=== PATIENT | male | born 1935 | race Caucasian/White ===

== ENCOUNTER 2018-05-18 11:25 | Emergency (ER) | payer MEDICARE, OTHER ==
[~2018-05-18] VITALS: Ht 177.8 cm; Wt 67.6 kg
--- NOTE | 2018-05-18 11:42 | NUR ---
DR HERNANDEZ AT BEDSIDE FOR EVAL.
[2018-05-18 11:57] LABS: BASOPHILS # (AUTO) 0.1 /CMM (0.0-0.2); BASOPHILS % (AUTO) 2.5 % (0.0-2.0); EOSINOPHILS % (AUTO) 3.5 % (0.0-6.0); HEMATOCRIT 45 % (39-51); HEMOGLOBIN 15.5 g/dL (13.5-17.5); MEAN CORPUSCULAR HEMOGLOBIN 33 PG (26.0-33.0); MEAN CORPUSCULAR HGB CONC 35 g/dl (31.0-36.0); MEAN CORPUSCULAR VOLUME 94 fL (80-96); MONOCYTES # (AUTO) 0.4 /CMM (0.1-1.30); MONOCYTES % (AUTO) 6.8 % (2.0-12.0); NEUTROPHILS % (AUTO) 69.2 % (43.0-81.0); PLATELET COUNT (AUTO) 171 /CMM (150-450); RDW COEFFICIENT OF VARIATION 12.6 (11.5-15.0); RED BLOOD CELL COUNT(AUTO) 4.75 MIL/uL (4.5-6.0); WHITE BLOOD COUNT (AUTO) 5.7 K/uL (4.3-11.0)
[2018-05-18 12:13] LABS: CALCIUM, SERUM 8.6 mg/dL (8.5-10.1); CARBON DIOXIDE 30 mmol/L (21-32); CHLORIDE 104 mmol/L (98-107); CREATININE 1.1 mg/dL (0.6-1.3); GLUCOSE 91 mg/dL (74-106); POTASSIUM 4.4 mmol/L (3.5-5.1); SODIUM SERUM 136 mmol/L (136-145); UREA NITROGEN, BLOOD 23 mg/dL (7-18)
[2018-05-18 12:16] LABS: INR 0.97 (0.85-1.15)
[2018-05-18 12:23] LABS: TROPONIN I < 0.017 ng/mL (0.00-0.056)
[2018-05-18 12:40] LABS: CHOLESTEROL 157 mg/dL (<200); HDL CHOLESTEROL 48 mg/dL (40-60); LDL 115 mg/dL (0-99); TRIGLYCERIDES 71 mg/dL (30-150)
[2018-05-18] MEDS ORDERED: LATA2.5D7 EACHEYE (12:59)
[2018-05-18] MEDS ORDERED: BRIM5DRO2 EACHEYE (12:59)
[2018-05-18 13:47] LABS: APPEARANCE,URINE Clear (CLEAR); BILIRUBIN,URINE Negative (NEGATIVE); BLOOD, URINE Negative Ery/uL (NEGATIVE); COLOR,URINE Yellow (YELLOW); KETONES,URINE Negative (NEGATIVE); LEUKOCYTE ESTERASE ,URINE Negative (NEGATIVE); NITRITE, URINE Negative (NEGATIVE); PROTEIN,URINE Negative (NEGATIVE); UGLUCOSE Negative (NEGATIVE); UROBILINOGEN,URINE 0.2 EU/dL (0.2)
--- NOTE | 2018-05-18 14:00 | NUR ---
JOHN,, CALLED, STS ,SHE JUST GOT OUT OF THE SHOWER AND WILL BE ON HER WAY,PATIENT INFORMED
--- NOTE | 2018-05-18 15:59 | NUR ---
PT D/C TO IN STABLE CONDITION.
[2018-05-18 16:01] VITALS: BP 112/77
== END 2018-05-18 16:01 | disposition home or self-care (01) ==
LOC: ER 11:26
DX: K59.00 Constipation, unspecified (principal); F03.90 Unspecified dementia, unspecified severity, without behavioral disturbance, psychotic disturbance, mood disturbance, and anxiety
CPT/HCPCS: 36415; 70450-TC; 71045-TC; 80048-TC; 80061-TC; 81000-TC; 82962-TC; 84484-TC; 85025-TC; 85730-TC; A4606; Z7610

== ENCOUNTER 2018-09-21 14:23 | Emergency (ER) | payer MEDICARE, OTHER ==
[~2018-09-21] VITALS: Ht 180.3 cm; Wt 74.8 kg
[~2018-09-21 14:23] MED LIST: BRIM5DRO2 EACHEYE; LATA2.5D7 EACHEYE
--- NOTE | 2018-09-21 14:25 | NUR ---
PT BIB RA 860 FROM HOME, C/O ABDOMINAL PAIN,ON & OFF, PT IS AAOX2, NOT IN RESPIRATORY DISTRESS, V/S STABLE, KEPT RESTED AND COMFORTABLE, HOOKED TO MONITOR.
--- NOTE | 2018-09-21 14:55 | NUR ---
SEEN AND EXAMINED BY DORINA ZURITA
--- NOTE | 2018-09-21 15:10 | NUR ---
LABS DRAWNED AND SENT TO LAB. AWAITING RESULTS.
[2018-09-21 15:13] LABS: BASOPHILS # (AUTO) 0.1 /CMM (0.0-0.2); BASOPHILS % (AUTO) 0.9 % (0.0-2.0); EOSINOPHILS % (AUTO) 5.3 % (0.0-6.0); HEMATOCRIT 44 % (39-51); LYMPHOCYTES # (AUTO) 1.3 /CMM (0.8-4.8); LYMPHOCYTES % (AUTO) 23.3 % (20.0-44.0); MEAN CORPUSCULAR HGB CONC 34 g/dl (31.0-36.0); MEAN CORPUSCULAR VOLUME 98 fL (80-96); MONOCYTES # (AUTO) 0.5 /CMM (0.1-1.30); MONOCYTES % (AUTO) 9.2 % (2.0-12.0); NEUTROPHILS # (AUTO) 3.4 /CMM (1.8-8.9); NEUTROPHILS % (AUTO) 61.3 % (43.0-81.0); PLATELET COUNT (AUTO) 152 /CMM (150-450); RED BLOOD CELL COUNT(AUTO) 4.53 MIL/uL (4.5-6.0); WHITE BLOOD COUNT (AUTO) 5.6 K/uL (4.3-11.0)
--- NOTE | 2018-09-21 15:13 | NUR ---
URINAL GIVEN BUT UNABLE TO GIVE URINE SPECIMEN RIGHT NOW.
[2018-09-21 15:23] LABS: CALCIUM, SERUM 9.2 mg/dL (8.5-10.1); CARBON DIOXIDE 29 mmol/L (21-32); CHLORIDE 106 mmol/L (98-107); CREATININE 1.1 mg/dL (0.6-1.3); GLUCOSE 92 mg/dL (74-106); POTASSIUM 4.8 mmol/L (3.5-5.1); SODIUM SERUM 140 mmol/L (136-145); UREA NITROGEN, BLOOD 23 mg/dL (7-18)
[2018-09-21 15:27] LABS: ALANINE AMINOTRANSFERASE 18 U/L (12-78); ALBUMIN 3.8 g/dL (3.4-5.0); ALKALINE PHOSPHATASE 66 U/L (46-116); ASPARTATE AMINOTRANSFERASE 14 U/L (15-37); BILIRUBIN,DIRECT 0.1 mg/dL (0.0-0.2); BILIRUBIN,TOTAL 0.4 mg/dL (0.2-1.0); LIPASE 312 U/L (73-393)
[2018-09-21] MEDS ORDERED: CT SWABBABLE VALVE TRANS SET 1 EA INFUS.SET MC ONE (15:38)
[2018-09-21] MEDS ORDERED: IV NS 0.9% 250 ML IV ONE (15:38)
[2018-09-21] MEDS ORDERED: IOHEXOL-300 100 ML VIAL IV ONE (15:38)
--- NOTE | 2018-09-21 15:51 | NUR ---
WHEELED TO CT SCAN VIA [facility].
--- NOTE | 2018-09-21 15:51 | NUR ---
URINE SPECIMEN COLLECTED AND SENT TO LAB.
[2018-09-21 15:56] LABS: APPEARANCE,URINE Clear (CLEAR); BILIRUBIN,URINE SMALL (NEGATIVE); BLOOD, URINE Negative Ery/uL (NEGATIVE); COLOR,URINE Yellow (YELLOW); KETONES,URINE Trace (NEGATIVE); LEUKOCYTE ESTERASE ,URINE Negative (NEGATIVE); NITRITE, URINE Negative (NEGATIVE); PROTEIN,URINE Negative (NEGATIVE); UGLUCOSE Negative (NEGATIVE)
[2018-09-21 16:05] LABS: RBC,URINE 0-2 /HPF (0-2); WBC,URINE 0-2 /HPF (0-3)
[2018-09-21 16:06] LABS: BACTERIA,URINE Few /HPF (None Seen); MUCUS,URINE Moderate /LPF (None Seen); SQUAMOUS EPITHELIAL CELL,UR Few /HPF (None Seen)
--- NOTE | 2018-09-21 18:19 | NUR ---
IV removed. Catheter intact and site benign. Pressure and 4x4 applied to site. No bleeding noted. Patient discharged to home in stable condition. Written and verbal after care instructions given. Patient verbalizes understanding of instruction.
[2018-09-21 18:22] VITALS: BP 127/80
== END 2018-09-21 18:22 | disposition home or self-care (01) ==
LOC: ER 14:23
DX: I71.4 Abdominal aortic aneurysm, without rupture (principal); F03.90 Unspecified dementia, unspecified severity, without behavioral disturbance, psychotic disturbance, mood disturbance, and anxiety; R94.31 Abnormal electrocardiogram [ECG] [EKG]
CPT/HCPCS: 36415; 80048-TC; 80076-TC; 81000-TC; 83690-TC; 84484-TC; 85025-TC; 87086-TC; J7050; Q9967

== ENCOUNTER 2018-09-28 08:38 | Emergency (ER) | payer MEDICARE ==
[~2018-09-28] VITALS: Ht 177.8 cm; Wt 64.9 kg
[2018-09-28 08:54] VITALS: BP 120/79
[2018-09-28 09:46] LABS: APPEARANCE,URINE Clear (CLEAR); BILIRUBIN,URINE Negative (NEGATIVE); BLOOD, URINE Negative Ery/uL (NEGATIVE); COLOR,URINE Yellow (YELLOW); KETONES,URINE Negative (NEGATIVE); LEUKOCYTE ESTERASE ,URINE Negative (NEGATIVE); NITRITE, URINE Negative (NEGATIVE); PH,URINE 5.5 (5.0-8.0); PROTEIN,URINE Negative (NEGATIVE); UGLUCOSE Negative (NEGATIVE); UROBILINOGEN,URINE 0.2 EU/dL (0.2)
--- NOTE | 2018-09-28 10:08 | NUR ---
Pt states "I can pee now-peed up a storm." For discharge ACI given to spouse- Verbalized understanding Home ambulatory stable. NO acute changes
== END 2018-09-28 10:11 | disposition home or self-care (01) ==
LOC: ER 08:49
DX: R33.9 Retention of urine, unspecified (principal); F03.90 Unspecified dementia, unspecified severity, without behavioral disturbance, psychotic disturbance, mood disturbance, and anxiety
CPT/HCPCS: 81001; 87086; 99283; A4606; 81000-TC

== ENCOUNTER 2019-01-12 00:03 | Emergency (ER) | payer MEDICARE ==
[~2019-01-12] VITALS: Ht 175.3 cm; Wt 65.8 kg
--- NOTE | 2019-01-12 00:10 | NUR ---
BIB FAMILY C/C BILATERAL LOWER ABDOMINAL PAIN. AA/OX4. AMBULATED INTO CLINIC WITH STABLE GAIT. SKIN PINK, WARM, DRY. MOVES ALL EXTREMITIES WELL. -GAURDING. PT DENIES N/V/D. VSS NAD. WILL CONTINUE TO MONITOR.
[2019-01-12 00:40] LABS: BASOPHILS # (AUTO) 0.1 /CMM (0.0-0.2); BASOPHILS % (AUTO) 0.9 % (0.0-2.0); EOSINOPHILS % (AUTO) 2.7 % (0.0-6.0); HEMATOCRIT 46 % (39-51); HEMOGLOBIN 15.7 g/dL (13.5-17.5); LYMPHOCYTES # (AUTO) 1.5 /CMM (0.8-4.8); LYMPHOCYTES % (AUTO) 26.5 % (20.0-44.0); MEAN CORPUSCULAR HGB CONC 34 g/dl (31.0-36.0); MEAN CORPUSCULAR VOLUME 97 fL (80-96); MONOCYTES # (AUTO) 0.4 /CMM (0.1-1.30); MONOCYTES % (AUTO) 7.3 % (2.0-12.0); NEUTROPHILS # (AUTO) 3.5 /CMM (1.8-8.9); NEUTROPHILS % (AUTO) 62.6 % (43.0-81.0); PLATELET COUNT (AUTO) 172 /CMM (150-450); WHITE BLOOD COUNT (AUTO) 5.7 K/uL (4.3-11.0)
[2019-01-12 00:50] LABS: APPEARANCE,URINE Clear (CLEAR); BILIRUBIN,URINE Negative (NEGATIVE); BLOOD, URINE Negative Ery/uL (NEGATIVE); COLOR,URINE Yellow (YELLOW); KETONES,URINE Negative (NEGATIVE); LEUKOCYTE ESTERASE ,URINE Negative (NEGATIVE); NITRITE, URINE Negative (NEGATIVE); PROTEIN,URINE Negative (NEGATIVE); UGLUCOSE Negative (NEGATIVE); UROBILINOGEN,URINE 0.2 EU/dL (0.2)
[2019-01-12 00:50] LABS: CALCIUM, SERUM 9.8 mg/dL (8.5-10.1); CARBON DIOXIDE 32 mmol/L (21-32); CHLORIDE 103 mmol/L (98-107); CREATININE 1.2 mg/dL (0.6-1.3); GLUCOSE 95 mg/dL (74-106); POTASSIUM 4.2 mmol/L (3.5-5.1); SODIUM SERUM 142 mmol/L (136-145); UREA NITROGEN, BLOOD 23 mg/dL (7-18)
--- NOTE | 2019-01-12 00:52 | NUR ---
PT BROUGHT TO CT SCAN
[2019-01-12 00:53] LABS: ALANINE AMINOTRANSFERASE 19 U/L (12-78); ALBUMIN 4.4 g/dL (3.4-5.0); ALKALINE PHOSPHATASE 69 U/L (46-116); ASPARTATE AMINOTRANSFERASE 16 U/L (15-37); BILIRUBIN,DIRECT 0.1 mg/dL (0.0-0.2); BILIRUBIN,TOTAL 0.6 mg/dL (0.2-1.0); LIPASE 268 U/L (73-393); TOTAL PROTEIN, SERUM 7.7 g/dL (6.4-8.2)
--- NOTE | 2019-01-12 01:36 | NUR ---
PT RESTING COMFORTABLY WITH FAMILY AT BEDSIDE. ANAYELI/RODRI. LEA. VSS. WILL CONTINUE TO MONITOR.
--- NOTE | 2019-01-12 02:03 | NUR ---
PT WITNESSED AMBULATING IN [place] WITH STABLE GAIT.
--- NOTE | 2019-01-12 03:20 | NUR ---
Patient discharged to home in stable condition. Written and verbal after care instructions given. Patient verbalizes understanding of instruction. IV removed. Catheter intact and site benign. Pressure and 4x4 applied to site. No bleeding noted. AMBULATED WITH STABLE GAIT. VSS.
[2019-01-12 03:21] VITALS: BP 132/77
== END 2019-01-12 03:22 | disposition home or self-care (01) ==
LOC: ER 00:05
DX: I71.4 Abdominal aortic aneurysm, without rupture (principal); K59.00 Constipation, unspecified; F03.90 Unspecified dementia, unspecified severity, without behavioral disturbance, psychotic disturbance, mood disturbance, and anxiety; K21.9 Gastro-esophageal reflux disease without esophagitis
CPT/HCPCS: 36415; 80048-TC; 80076-TC; 81000-TC; 83690-TC; 85025-TC

== ENCOUNTER 2019-02-06 07:57 | Emergency (ER) | payer MEDICARE ==
[~2019-02-06] VITALS: Ht 175.3 cm; Wt 65.3 kg
--- NOTE | 2019-02-06 08:00 | NUR ---
BIB W C/O LOWER ABDOMINAL PAIN THIS MORNING, -DIARRHEA,-NAUSEA/VOMITING, DENIES PAIN UPON ARRIVAL TO ED. TO ER BED 12, HOOKED TO MONITOR, CHANGED TO GOWN, PROVIDED W WARM BLANKET, AWAITING MD PAREDES
--- NOTE | 2019-02-06 08:18 | NUR ---
DR MEDINA AT BEDSIDE
--- NOTE | 2019-02-06 08:34 | NUR ---
quality assurance/r&d lab technician at bedside, blood drawn.
[2019-02-06 08:42] LABS: BASOPHILS % (AUTO) 0.9 % (0.0-2.0); EOSINOPHILS % (AUTO) 5.6 % (0.0-6.0); HEMATOCRIT 42 % (39-51); HEMOGLOBIN 14.3 g/dL (13.5-17.5); LYMPHOCYTES # (AUTO) 1.1 /CMM (0.8-4.8); LYMPHOCYTES % (AUTO) 23.7 % (20.0-44.0); MEAN CORPUSCULAR HGB CONC 34 g/dl (31.0-36.0); MEAN CORPUSCULAR VOLUME 97 fL (80-96); MONOCYTES # (AUTO) 0.4 /CMM (0.1-1.30); MONOCYTES % (AUTO) 9.5 % (2.0-12.0); NEUTROPHILS # (AUTO) 2.7 /CMM (1.8-8.9); NEUTROPHILS % (AUTO) 60.3 % (43.0-81.0); PLATELET COUNT (AUTO) 141 /CMM (150-450); WHITE BLOOD COUNT (AUTO) 4.5 K/uL (4.3-11.0)
[2019-02-06 08:49] LABS: CALCIUM, SERUM 9.2 mg/dL (8.5-10.1); CARBON DIOXIDE 31 mmol/L (21-32); CHLORIDE 106 mmol/L (98-107); CREATININE 1.1 mg/dL (0.6-1.3); GLUCOSE 98 mg/dL (74-106); POTASSIUM 4.8 mmol/L (3.5-5.1); SODIUM SERUM 141 mmol/L (136-145); UREA NITROGEN, BLOOD 28 mg/dL (7-18)
[2019-02-06] MEDS ORDERED: NAPROXEN 250 MG TABLET ONE (08:49)
[2019-02-06] MEDS: NAPROXEN 500 MG TABLET PO SCH ×2 (08:54→08:56)
[2019-02-06 08:55] LABS: ALANINE AMINOTRANSFERASE 15 U/L (12-78); ALBUMIN 3.6 g/dL (3.4-5.0); ALKALINE PHOSPHATASE 58 U/L (46-116); ASPARTATE AMINOTRANSFERASE 13 U/L (15-37); BILIRUBIN,DIRECT 0.1 mg/dL (0.0-0.2); BILIRUBIN,TOTAL 0.3 mg/dL (0.2-1.0); LIPASE 356 U/L (73-393); TOTAL PROTEIN, SERUM 6.6 g/dL (6.4-8.2)
--- NOTE | 2019-02-06 09:48 | NUR ---
URINE SAMPLE SOLLECTED AND SENT TO LAB
[2019-02-06 09:56] LABS: APPEARANCE,URINE Clear (CLEAR); BILIRUBIN,URINE Negative (NEGATIVE); BLOOD, URINE Negative Ery/uL (NEGATIVE); COLOR,URINE Yellow (YELLOW); KETONES,URINE Negative (NEGATIVE); LEUKOCYTE ESTERASE ,URINE Negative (NEGATIVE); NITRITE, URINE Negative (NEGATIVE); PROTEIN,URINE Negative (NEGATIVE); UGLUCOSE Negative (NEGATIVE); UROBILINOGEN,URINE 0.2 EU/dL (0.2)
--- NOTE | 2019-02-06 10:37 | NUR ---
Patient discharged to home in stable condition. Written and verbal after care instructions given. Patient verbalizes understanding of instruction.
[2019-02-06 10:39] VITALS: BP 109/76
== END 2019-02-06 10:40 | disposition home or self-care (01) ==
LOC: ER 07:59
DX: R10.30 Lower abdominal pain, unspecified (principal); F03.90 Unspecified dementia, unspecified severity, without behavioral disturbance, psychotic disturbance, mood disturbance, and anxiety; Z79.899 Other long term (current) drug therapy
CPT/HCPCS: 36415; 80048-TC; 80076-TC; 81000-TC; 83690-TC; 85025-TC

== ENCOUNTER 2019-02-14 06:22 | Emergency (ER) | payer MEDICARE ==
[~2019-02-14] VITALS: Ht 175.3 cm; Wt 64.4 kg
--- NOTE | 2019-02-14 06:43 | NUR ---
presented to the ER with c/o inability to urinate and lower abd tenderness, pmh: "inflamation of prostate." Does not remember exactly when was the last time he used the bathroom.
[2019-02-14] MEDS ORDERED: IV NS 0.9% 500 ML BAG IV ONE (07:00)
[2019-02-14 07:09] LABS: BASOPHILS % (AUTO) 0.7 % (0.0-2.0); EOSINOPHILS % (AUTO) 4.1 % (0.0-6.0); HEMATOCRIT 46 % (39-51); HEMOGLOBIN 15.3 g/dL (13.5-17.5); LYMPHOCYTES % (AUTO) 21.3 % (20.0-44.0); MEAN CORPUSCULAR HGB CONC 34 g/dl (31.0-36.0); MEAN CORPUSCULAR VOLUME 97 fL (80-96); MONOCYTES # (AUTO) 0.4 /CMM (0.1-1.30); MONOCYTES % (AUTO) 9.1 % (2.0-12.0); NEUTROPHILS # (AUTO) 3.1 /CMM (1.8-8.9); NEUTROPHILS % (AUTO) 64.8 % (43.0-81.0); PLATELET COUNT (AUTO) 162 /CMM (150-450); RED BLOOD CELL COUNT(AUTO) 4.72 MIL/uL (4.5-6.0); WHITE BLOOD COUNT (AUTO) 4.8 K/uL (4.3-11.0)
[2019-02-14 07:15] LABS: CALCIUM, SERUM 9.3 mg/dL (8.5-10.1); CARBON DIOXIDE 32 mmol/L (21-32); CHLORIDE 102 mmol/L (98-107); CREATININE 1.3 mg/dL (0.6-1.3); GLUCOSE 91 mg/dL (74-106); POTASSIUM 4.5 mmol/L (3.5-5.1); SODIUM SERUM 139 mmol/L (136-145); UREA NITROGEN, BLOOD 25 mg/dL (7-18)
[2019-02-14 08:40] LABS: APPEARANCE,URINE CLEAR (CLEAR); BILIRUBIN,URINE NEGATIVE (NEGATIVE); BLOOD, URINE NEGATIVE Ery/uL (NEGATIVE); COLOR,URINE YELLOW (YELLOW); KETONES,URINE NEGATIVE (NEGATIVE); LEUKOCYTE ESTERASE ,URINE NEGATIVE (NEGATIVE); NITRITE, URINE NEGATIVE (NEGATIVE); PROTEIN,URINE NEGATIVE (NEGATIVE); UGLUCOSE NEGATIVE (NEGATIVE); UROBILINOGEN,URINE 0.2 EU/dL (0.2)
--- NOTE | 2019-02-14 09:00 | NUR ---
Patient discharged to home in stable condition. Written and verbal after care instructions given. Patient verbalizes understanding of instruction.IV removed. Catheter intact and site benign. Pressure and 4x4 applied to site. No bleeding noted.
[2019-02-14 09:01] VITALS: BP 121/66
== END 2019-02-14 09:03 | disposition home or self-care (01) ==
LOC: ER 06:23
DX: R33.9 Retention of urine, unspecified (principal); R10.2 Pelvic and perineal pain; F03.90 Unspecified dementia, unspecified severity, without behavioral disturbance, psychotic disturbance, mood disturbance, and anxiety
CPT/HCPCS: 36415; 74176; 80048; 81001; 85025; 99284; J7040; 81000-TC

== ENCOUNTER 2019-02-20 04:21 | Emergency (ER) | payer MEDICARE ==
[~2019-02-20] VITALS: Ht 167.6 cm; Wt 65.3 kg
--- NOTE | 2019-02-20 04:35 | NUR ---
PRESENTED TO THE ER W/ C/O ABD PAIN AND INABILITY TO URINATE FOR THE PAST FEW HOURS. W/ PMH OF DEMENTIA AND DOES NOT EXACTLY REMEMBER WHEN WAS THE LAST TIME HE URINATED. VSS. WILL CONT TO MONITOR ,
[2019-02-20] MEDS ORDERED: ACETAMINOPHEN ES 500 MG TABLET ONE (04:40)
[2019-02-20 04:56] LABS: BASOPHILS % (AUTO) 0.9 % (0.0-2.0); EOSINOPHILS % (AUTO) 4.4 % (0.0-6.0); HEMATOCRIT 44 % (39-51); HEMOGLOBIN 14.8 g/dL (13.5-17.5); LYMPHOCYTES # (AUTO) 1.2 /CMM (0.8-4.8); LYMPHOCYTES % (AUTO) 24.8 % (20.0-44.0); MEAN CORPUSCULAR HGB CONC 34 g/dl (31.0-36.0); MEAN CORPUSCULAR VOLUME 97 fL (80-96); MONOCYTES # (AUTO) 0.5 /CMM (0.1-1.30); MONOCYTES % (AUTO) 9.9 % (2.0-12.0); NEUTROPHILS # (AUTO) 2.8 /CMM (1.8-8.9); PLATELET COUNT (AUTO) 155 /CMM (150-450); RED BLOOD CELL COUNT(AUTO) 4.47 MIL/uL (4.5-6.0); WHITE BLOOD COUNT (AUTO) 4.7 K/uL (4.3-11.0)
--- NOTE | 2019-02-20 04:57 | NUR ---
RAC 20G PIV INSERTED. BLOOD DRAWN AND SENT TO THE LAB. MEDICARTED ORDERED; WILL CONT TO MONITOR ,
[2019-02-20] MEDS ORDERED: ACETAMINOPHEN ES 500 MG TABLET PO ONE (05:00)
[2019-02-20] MEDS ORDERED: IV NS 0.9% 1,000 ML BAG IV ONE (05:00)
[2019-02-20 05:04] LABS: CALCIUM, SERUM 8.9 mg/dL (8.5-10.1); CARBON DIOXIDE 31 mmol/L (21-32); CHLORIDE 103 mmol/L (98-107); CREATININE 1.1 mg/dL (0.6-1.3); GLUCOSE 87 mg/dL (74-106); POTASSIUM 4.6 mmol/L (3.5-5.1); SODIUM SERUM 140 mmol/L (136-145); UREA NITROGEN, BLOOD 22 mg/dL (7-18)
--- NOTE | 2019-02-20 05:46 | NUR ---
pt was able to urinate a good amount. unable to measure as he urinated on the floor mostly instead of the urinal. urine: clear and yellow. sample collected and sent to the lab
[2019-02-20 05:50] LABS: APPEARANCE,URINE Clear (CLEAR); BILIRUBIN,URINE Negative (NEGATIVE); BLOOD, URINE Negative Ery/uL (NEGATIVE); COLOR,URINE Yellow (YELLOW); KETONES,URINE Negative (NEGATIVE); LEUKOCYTE ESTERASE ,URINE Negative (NEGATIVE); NITRITE, URINE Negative (NEGATIVE); PROTEIN,URINE Negative (NEGATIVE); UGLUCOSE Negative (NEGATIVE); UROBILINOGEN,URINE 0.2 EU/dL (0.2)
--- NOTE | 2019-02-20 06:06 | NUR ---
Patient discharged to home in stable condition. Written and verbal after care instructions given. Patient verbalizes understanding of instruction.
[2019-02-20 06:07] VITALS: BP 128/74
== END 2019-02-20 06:07 | disposition home or self-care (01) ==
LOC: ER 04:22
DX: E86.0 Dehydration (principal); F03.90 Unspecified dementia, unspecified severity, without behavioral disturbance, psychotic disturbance, mood disturbance, and anxiety
CPT/HCPCS: 36415; 80048; 81001; 85025; 96360; 99283; J7030; 81000-TC

== ENCOUNTER 2019-03-12 06:25 | Inpatient (IN) | payer MEDICARE, OTHER ==
[~2019-03-12] VITALS: Ht 170.2 cm; Wt 60.0 kg
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
[2019-03-12] MEDS ORDERED: OLANZAPINE 5 MG TABLET PO ONE (07:00)
[2019-03-12] MEDS ORDERED: OLANZAPINE 5 MG TABLET ONE (07:06)
[2019-03-12 07:08] LABS: EOSINOPHILS % (AUTO) 3.1 % (0.0-6.0); HEMATOCRIT 42 % (39-51); HEMOGLOBIN 14.1 g/dL (13.5-17.5); LYMPHOCYTES # (AUTO) 1.2 /CMM (0.8-4.8); LYMPHOCYTES % (AUTO) 26.3 % (20.0-44.0); MEAN CORPUSCULAR HGB CONC 34 g/dl (31.0-36.0); MEAN CORPUSCULAR VOLUME 98 fL (80-96); MONOCYTES # (AUTO) 0.4 /CMM (0.1-1.30); MONOCYTES % (AUTO) 9.2 % (2.0-12.0); NEUTROPHILS # (AUTO) 2.7 /CMM (1.8-8.9); NEUTROPHILS % (AUTO) 60.4 % (43.0-81.0); PLATELET COUNT (AUTO) 141 /CMM (150-450); RED BLOOD CELL COUNT(AUTO) 4.32 MIL/uL (4.5-6.0); WHITE BLOOD COUNT (AUTO) 4.5 K/uL (4.3-11.0)
[2019-03-12 07:17] LABS: CALCIUM, SERUM 9.1 mg/dL (8.5-10.1); CARBON DIOXIDE 27 mmol/L (21-32); CHLORIDE 104 mmol/L (98-107); CREATININE 1.1 mg/dL (0.6-1.3); GLUCOSE 97 mg/dL (74-106); POTASSIUM 4.1 mmol/L (3.5-5.1); SODIUM SERUM 139 mmol/L (136-145); UREA NITROGEN, BLOOD 23 mg/dL (7-18)
--- NOTE | 2019-03-12 07:25 | NUR ---
RECVD REPORT FROM IGOR. PATIENT IS STABLE WITH NO DISTRESS NOTED. VS ARE STABLE WILL CONTINUE TO MONITOR.
[2019-03-12 07:32] LABS: ALANINE AMINOTRANSFERASE 15 U/L (12-78); ALBUMIN 3.8 g/dL (3.4-5.0); ALKALINE PHOSPHATASE 52 U/L (46-116); ASPARTATE AMINOTRANSFERASE 13 U/L (15-37); BILIRUBIN,DIRECT 0.2 mg/dL (0.0-0.2); BILIRUBIN,TOTAL 0.8 mg/dL (0.2-1.0); SALICYLATE 0.9 mg/dL (2.8-20.0); TOTAL PROTEIN, SERUM 6.6 g/dL (6.4-8.2)
[2019-03-12 07:33] LABS: ACETAMINOPHEN 0 ug/ml (10-30); ALCOHOL, BLOOD < 3 mg/dL (0-0)
--- NOTE | 2019-03-12 07:45 | NUR ---
URINE SAMPLE COLLECTED SENT TO LAB
--- NOTE | 2019-03-12 08:12 | NUR ---
CALLED ART [phone]
[2019-03-12 08:14] LABS: APPEARANCE,URINE Clear (CLEAR); BILIRUBIN,URINE Negative (NEGATIVE); BLOOD, URINE Negative Ery/uL (NEGATIVE); COLOR,URINE Yellow (YELLOW); KETONES,URINE Negative (NEGATIVE); LEUKOCYTE ESTERASE ,URINE Negative (NEGATIVE); NITRITE, URINE Negative (NEGATIVE); PH,URINE 6.5 (5.0-8.0); PROTEIN,URINE Negative (NEGATIVE); UGLUCOSE Negative (NEGATIVE)
[2019-03-12 08:22] LABS: BACTERIA,URINE None seen /HPF (None Seen); RBC,URINE 0-2 /HPF (0-2); SQUAMOUS EPITHELIAL CELL,UR Rare /HPF (None Seen)
[2019-03-12 08:23] LABS: MUCUS,URINE Few /LPF (None Seen); WBC,URINE 0-2 /HPF (0-3)
--- NOTE | 2019-03-12 08:24 | NUR ---
BREAKFAST PROVIDED AT BEDSIDE
--- NOTE | 2019-03-12 11:51 | NUR ---
ADMIT TO [address] GPS
--- NOTE | 2019-03-12 12:15 | NUR ---
REPORT GIVEN TO RADHA
[2019-03-12] MEDS ORDERED: MAGNESIUM HYDROXIDE 30 ML UDC PO PRN (13:30)
[2019-03-12] MEDS ORDERED: MAG HYDROX/AL HYDROX/SIMETH 30 ML UDC PO PRN (13:30)
[2019-03-12] MEDS ORDERED: ACETAMINOPHEN 325 MG TABLET PO PRN (13:30)
--- NOTE | 2019-03-12 13:34 | NUR ---
GPS RN ADMITTING NOTE: PT 84 Y/O MALE ADMITTED FROM HOME TO [facility] ED.PLACED ON 5150 HOLD FOR GD PER HOLD PT IS ALERT AND KNOWS HIS NAME , HE ACKNOWLEDGES PUSHING HIS AND IS VERY APOLOGETIC.PT THINKS HE JUST [place] FEW DA[place] AGO. PT IS NON COMPLIANT WITH CARE. UPON FACE TO FACE ASSESSMENT PT A&O X1-2 CONFUSED, FORGETFUL, DISORGANIZED, AMBULATORY STEADY GAIT.DR PAULINO NOTIFIED WITH STANDING ORDER. PT UNABLE TO SIGN ADMITTING PAPERS DUE TO MENTAL STATE.
[2019-03-12 16:00] VITALS: BP 135/77
[2019-03-12] MEDS: DIVALPROEX SODIUM 125 MG TABLET.DR PO SCH (16:51)
--- NOTE | 2019-03-12 19:30 | NUR ---
GPS RN NOTE, RECEIVED PATIENT AWAKE AND IN BED, NO S/S OR COMPLAINTS OF PAIN AT THIS TIME. PATIENT IS DISPLAYING NO S/S OF APPARENT DISTRESS AT THIS TIME. PATIENT BREATHING IS UNLABORED WITH EQUAL RISE AND FALL OF THE CHEST. PATIENT IS ALERT AND ORIENTED X 1 ON ROOM AIR WITH A SPO2 OF 94 %. PATIENT IS MED COMPLAINT, DISORGANIZED, ANXIOUS, UNCOOPERATIVE, CONFUSED, AND NEEDS REORIENTATION. PATIENT DENIES SUICIDE AND HOMICIDAL IDEATIONS AT THIS TIME. PATIENT ASSISTED WITH TURNING AND REPOSITIONING Q2HR AND PRN FOR COMFORT AND CIRCULATION. PATIENT HAS NO NEEDS AT THIS TIME. PATIENT EDUCATED ON THE USE OF THE CALL PRYOR. PATIENT BED SIDE RAILS ARE UP X 2 FOR SAFETY, BED IS LOCKED, AND LOW WILL CONTINUE TO MONITOR AND MAINTAIN SAFETY.
[2019-03-12 20:09] VITALS: BP 117/79
[2019-03-12] MEDS ORDERED: QUETIAPINE FUMARATE 25 MG TABLET PO SCH (22:00)
[2019-03-12] MEDS: TEMAZEPAM 7.5 MG CAPSULE PO PRN (22:36)
--- NOTE | 2019-03-12 22:36 | NUR ---
GPS RN NOTE, PATIENT HAS A COMPLAINT OF NOT BEING ABLE TO SLEEP AND IS REQUESTING RESTORIL AT THIS TIME. PATIENT VITAL SIGNS ARE STABLE. GAVE RESTORIL 7.5 MG PO HS PRN ORDERED. WILL REASSESS FOR INSOMNIA AND I WILL CONTINUE TO MONITOR THIS PATIENT.
[2019-03-13] MEDS: LORAZEPAM 0.5 MG TABLET PO PRN ×2 (01:04→13:55)
--- NOTE | 2019-03-13 01:04 | NUR ---
GPS RN NOTE, PATIENT HAS A COMPLAINT OF FEELING ANXIOUS AND IS REQUESTING ATIVAN AT THIS TIME. PATIENT VITAL SIGNS ARE STABLE. GAVE ATIVAN 0.5MG PO Q6HR PRN ORDERED. WILL REASSESS FOR ANXIETY AND I WILL CONTINUE TO MONITOR THIS PATIENT.
[2019-03-13 07:17] LABS: ALANINE AMINOTRANSFERASE 14 U/L (12-78); ALBUMIN 3.7 g/dL (3.4-5.0); ALKALINE PHOSPHATASE 53 U/L (46-116); ASPARTATE AMINOTRANSFERASE 15 U/L (15-37); BILIRUBIN,TOTAL 0.6 mg/dL (0.2-1.0); CARBON DIOXIDE 25 mmol/L (21-32); CHLORIDE 105 mmol/L (98-107); GLUCOSE 89 mg/dL (74-106); POTASSIUM 3.8 mmol/L (3.5-5.1); SODIUM SERUM 139 mmol/L (136-145); TOTAL PROTEIN, SERUM 6.6 g/dL (6.4-8.2); UREA NITROGEN, BLOOD 25 mg/dL (7-18)
[2019-03-13 07:43] LABS: CHOLESTEROL 167 mg/dL (<200); HDL CHOLESTEROL 52 mg/dL (40-60); LDL 104 mg/dL (0-99); TRIGLYCERIDES 73 mg/dL (30-150)
[2019-03-13 08:00] VITALS: BP 98/60
[2019-03-13] MEDS: TIMOLOL 0.5% SOLN OPHTH 5 ML BOTTLE EACHEYE SCH ×2 (08:44→17:04)
[2019-03-13] MEDS: BRIMONIDINE TARTRATE OPHT SOLN 5 ML BOTTLE EACHEYE SCH ×2 (08:44→17:04)
[2019-03-13] MEDS: DIVALPROEX SODIUM 125 MG TABLET.DR PO SCH ×3 (08:44→17:04)
--- NOTE | 2019-03-13 09:00 | NUR ---
NURSE NOTE RECEIVED PT IN HIS BED, APPEARED SLEEPING IN STABLE CONDITION, PT TOOK HIS MEDICATION, EAT HIS BREAKFAST, STATED I WANT TO SLEEP LIVE ME ALONE.
--- NOTE | 2019-03-13 09:19 | NUR ---
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 JANAK stated that she has not interviewed pt yet and has not contacted family and will return his call with additional information. Dillon agreed.
--- NOTE | 2019-03-13 13:50 | NUR ---
NURSE NOTE PT GETTING CONFUSED NOT FOLLOWING DIRECTION, ATIVAN GIVEN,
--- NOTE | 2019-03-13 15:30 | NUR ---
NURSE NOTE PT IS GETTING ANXIOUS, FOCUSED ON LOOKING FOR HIS , NOT RESPONDING PROPERLY TO QUESTIONS. PT IS NOT STABLE WHEN WALKING TO FALL, CHARGE NURSE NOTIFIED ABOUT PT UNSTABLE AND GETTING MORE CONFUSED, SHE SAID INSTRUCTED TO PUT PT ON A LIN CHAIR,
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
[2019-03-13 16:00] VITALS: BP 133/79
[2019-03-13] MEDS: QUETIAPINE FUMARATE 25 MG TABLET PO SCH ×2 (17:04→22:22)
--- NOTE | 2019-03-13 17:45 | NUR ---
NURSE NOTE PT TOOK DOWN FOR CT BUT THEY COULD' NT DO IT BECAUSE PT REFUSED THEY BROUGHT PT BACK THE UNIT, PT IN DINNER ROOM IN STABLE CONDITION
--- NOTE | 2019-03-13 18:20 | NUR ---
NURSE NOTE PT IN DINNER ROOM WITH THE ON THE SIDE, PT IS TOTALLY CONFUSED NOT FOLLOWING DIRECTION
--- NOTE | 2019-03-13 19:30 | NUR ---
GPS RN NOTE, RECEIVED PATIENT AWAKE AND IN BED, NO S/S OR COMPLAINTS OF PAIN AT THIS TIME. PATIENT IS DISPLAYING NO S/S OF APPARENT DISTRESS AT THIS TIME. PATIENT BREATHING IS UNLABORED WITH EQUAL RISE AND FALL OF THE CHEST. PATIENT IS ALERT AND ORIENTED X 3 ON ROOM AIR WITH A SPO2 OF 93 %. PATIENT IS MED COMPLAINT, ANXIOUS, ANGRY UNCOOPERATIVE, AND NEEDS REORIENTATION. PATIENT DENIES SUICIDE AND HOMICIDAL IDEATIONS AT THIS TIME. PATIENT ASSISTED WITH TURNING AND REPOSITIONING Q2HR AND PRN FOR COMFORT AND CIRCULATION. PATIENT HAS NO NEEDS AT THIS TIME. PATIENT EDUCATED ON THE USE OF THE CALL PRYOR. PATIENT BED SIDE RAILS ARE UP X 2 FOR SAFETY, BED IS LOCKED, AND LOW WILL CONTINUE TO MONITOR AND MAINTAIN SAFETY.
[2019-03-13 20:19] VITALS: BP 134/62
[2019-03-13] MEDS: LATANOPROST EYE DROP 0.005% 2.5 ML BOTTLE EACHEYE SCH (22:21)
[2019-03-13] MEDS: TEMAZEPAM 7.5 MG CAPSULE PO PRN (22:22)
[2019-03-14 08:00] VITALS: BP 105/69
[2019-03-14] MEDS: BRIMONIDINE TARTRATE OPHT SOLN 5 ML BOTTLE EACHEYE SCH ×2 (08:52→16:38)
[2019-03-14] MEDS: TIMOLOL 0.5% SOLN OPHTH 5 ML BOTTLE EACHEYE SCH ×2 (08:52→16:38)
[2019-03-14] MEDS: DIVALPROEX SODIUM 125 MG TABLET.DR PO SCH ×3 (08:52→16:38)
[2019-03-14] MEDS: QUETIAPINE FUMARATE 25 MG TABLET PO SCH ×3 (08:52→22:21)
--- NOTE | 2019-03-14 09:10 | NUR ---
UR NOTE: JANAK contacted Caterina [phone] ex:[phone] case manager specialist at [facility] and left clinical review via voicemail.
--- NOTE | 2019-03-14 10:33 | NUR ---
INITIAL DISCHARGE NOTE: Per Jodie [phone] pt may need board and care placement before being able to return home. stated she will see how pt progresses in hospital and on medication and will determine if he will return home to [address] [facility] [address]. SW will help form a safe and proper discharge plan in collaboration with .
--- NOTE | 2019-03-14 10:49 | NUR ---
NURSE NOTE PT IN HIS BED SLEEPING AWAKE HIM FOR CT, PT REFUSED STATED THAT I WANT TO SLEEP
[2019-03-14 11:25] LABS: BASOPHILS % (AUTO) 0.5 % (0.0-2.0); EOSINOPHILS % (AUTO) 3.2 % (0.0-6.0); HEMATOCRIT 45 % (39-51); HEMOGLOBIN 15.3 g/dL (13.5-17.5); LYMPHOCYTES # (AUTO) 1.2 /CMM (0.8-4.8); LYMPHOCYTES % (AUTO) 24.7 % (20.0-44.0); MEAN CORPUSCULAR HGB CONC 34 g/dl (31.0-36.0); MEAN CORPUSCULAR VOLUME 97 fL (80-96); MONOCYTES # (AUTO) 0.4 /CMM (0.1-1.30); MONOCYTES % (AUTO) 8.9 % (2.0-12.0); NEUTROPHILS # (AUTO) 3.1 /CMM (1.8-8.9); NEUTROPHILS % (AUTO) 62.7 % (43.0-81.0); PLATELET COUNT (AUTO) 146 /CMM (150-450); RED BLOOD CELL COUNT(AUTO) 4.65 MIL/uL (4.5-6.0)
[2019-03-14 11:34] LABS: ALANINE AMINOTRANSFERASE 16 U/L (12-78); ALBUMIN 3.8 g/dL (3.4-5.0); ALKALINE PHOSPHATASE 60 U/L (46-116); ASPARTATE AMINOTRANSFERASE 21 U/L (15-37); BILIRUBIN,TOTAL 0.9 mg/dL (0.2-1.0); CALCIUM, SERUM 9.2 mg/dL (8.5-10.1); CARBON DIOXIDE 28 mmol/L (21-32); CHLORIDE 105 mmol/L (98-107); CREATININE 1.1 mg/dL (0.6-1.3); GLUCOSE 81 mg/dL (74-106); MAGNESIUM 2.2 mg/dL (1.8-2.4); PHOSPHORUS 3.4 mg/dL (2.5-4.9); POTASSIUM 3.8 mmol/L (3.5-5.1); SODIUM SERUM 141 mmol/L (136-145); UREA NITROGEN, BLOOD 22 mg/dL (7-18)
[2019-03-14 11:43] LABS: THYROID STIMULATING HORMONE 1.432 uIU/mL (0.358-3.74)
--- NOTE | 2019-03-14 13:54 | NUR ---
UR NOTE: SW received a voicemail from Caterina [phone] ex:[phone] case managers at [facility] stating pt has been authorized 2 days 03/15/19 and 03/16/19 with review due on 03/16/19.
--- NOTE | 2019-03-14 14:30 | NUR ---
NURSE NOTE PT SPEND OF THE DAY IN DINNER ROOM, KEEP PACING FRONT AND BACK NOT LISTEN TO INSTRUCTIONS, KEEP CALLING HIS IDRIS. PT REALLY CONFUSED.
[2019-03-14 16:00] VITALS: BP 131/68
--- NOTE | 2019-03-14 18:20 | NUR ---
NURSE NOTE PT TOOK HIS MEDICATIONS, SO CONFUSED, CAN NOT KEEP CALM OR STAY ONE PLACE, PT KEEP PACING MOVING FROM PT TO ANOTHER, STILL CALLING HIS
[2019-03-14 19:58] VITALS: BP 101/54
[2019-03-14] MEDS: TEMAZEPAM 7.5 MG CAPSULE PO PRN (22:21)
[2019-03-14] MEDS: LATANOPROST EYE DROP 0.005% 2.5 ML BOTTLE EACHEYE SCH (22:24)
[2019-03-15 08:00] VITALS: BP 116/51
[2019-03-15] MEDS: DIVALPROEX SODIUM 125 MG TABLET.DR PO SCH ×2 (08:59→21:51)
[2019-03-15] MEDS: BRIMONIDINE TARTRATE OPHT SOLN 5 ML BOTTLE EACHEYE SCH ×2 (09:00→17:12)
[2019-03-15] MEDS: QUETIAPINE FUMARATE 25 MG TABLET PO SCH ×3 (09:00→21:51)
[2019-03-15] MEDS: TIMOLOL 0.5% SOLN OPHTH 5 ML BOTTLE EACHEYE SCH ×2 (09:00→17:11)
--- NOTE | 2019-03-15 12:31 | NUR ---
JANAK received a call from Kasey Huddleston ([phone]), from Adult Protective Services, and was asked not to discharge the pt back to his home with his due to the 's inability to care for the both of them. JANAK stated that she would pass the message along to the appropriate director social welfare.
[2019-03-15 16:00] VITALS: BP 114/75
[2019-03-15 20:00] VITALS: BP 119/85
[2019-03-15] MEDS: TEMAZEPAM 7.5 MG CAPSULE PO PRN (21:51)
[2019-03-15] MEDS: LATANOPROST EYE DROP 0.005% 2.5 ML BOTTLE EACHEYE SCH (21:51)
[2019-03-16 08:00] VITALS: BP 126/78
--- NOTE | 2019-03-16 08:36 | NUR ---
UR NOTE: JANAK contacted Caterina [phone] ex:[phone] case work aide at [facility] and left clinical review via voicemail.
[2019-03-16] MEDS: QUETIAPINE FUMARATE 25 MG TABLET PO SCH ×3 (08:51→21:27)
[2019-03-16] MEDS: LORAZEPAM 0.5 MG TABLET PO PRN (08:52)
[2019-03-16] MEDS: DIVALPROEX SODIUM 125 MG TABLET.DR PO SCH ×2 (08:52→21:27)
[2019-03-16] MEDS: BRIMONIDINE TARTRATE OPHT SOLN 5 ML BOTTLE EACHEYE SCH ×2 (08:53→17:37)
[2019-03-16] MEDS: TIMOLOL 0.5% SOLN OPHTH 5 ML BOTTLE EACHEYE SCH ×2 (08:53→17:37)
--- NOTE | 2019-03-16 09:00 | NUR ---
NURSE NOTE RECEIVED PT AT BED APPEARED SLEEPING IN STABLE CONDITION, NO DISTRESS NOTED
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
--- NOTE | 2019-03-16 09:13 | NUR ---
APS: JANAK contacted Kasey Huddleston ([phone]), from Adult Protective Services, and left a voicemail informing her speculations about pt being at risk of losing his life is not true and also informed her the reason pt was placed on a 5510 hold. JANAK informed her that once pt is discharged he will return home. JANAK also informed her that she also received a call from Bernadette-picking supervisor at [facility] [phone] and mentioned that JANAK would like to speak to only one contact santhosh from [facility] to avoid confusion.
--- NOTE | 2019-03-16 14:00 | NUR ---
NURSE NOTE PT IN DINNER ROOM APPEARED TO BE CALM AND QUIET, WITH A PERIOD OF CONFUSION, PT WAS HAVING A GOOD AND CALM CONSREVATION WITH THE NURSE AT THIS TIME, PT IS RESPONDING TO QUESTIONS, TAKING ABOUT HOW HIS FEELING DEPRESSED AND TEARFUL WHEN EVER HIS ALONE BY HIMSELF.
--- NOTE | 2019-03-16 14:32 | NUR ---
UR NOTE: SW received a call from Caterina [phone] ex:[phone] case management associate at [facility] stating pt has been authorized 2 days 03/17/19 and 03/18/19 with peer review due on 03/19/19.
--- NOTE | 2019-03-16 14:34 | NUR ---
JANAK contacted pts Jodie [phone] to inform her [facility] has authorized 2 additional days for pt and will be discharging on Tuesday03/19/19. agreed and stated she will be coming at 1:00pm to picker and sorter load and unload pt and transport home.
[2019-03-16 16:00] VITALS: BP 121/80
--- NOTE | 2019-03-16 17:02 | NUR ---
NURSE NOTE PT SPOKE TO AND WAS VERY HAPPY, STATED THAT THE WILL PICK HIM ON TUESDAY AFTER DISCHARGE, PT WAS SO HAPPY AND WAS VERY CHEERFUL,
--- NOTE | 2019-03-16 18:20 | NUR ---
NURSE NOTE PT IS WITH THE IN DINER ROOM NO DISTRESS NOTED AT THIS TIME
--- NOTE | 2019-03-16 19:37 | NUR ---
GPS RN NOTES PT RECEIVED SLEEPING, SO AT BEDSIDE. NO AGGRESSIVE BEHAVIOR NOTED.
[2019-03-16 19:59] VITALS: BP 107/63
[2019-03-16] MEDS: LATANOPROST EYE DROP 0.005% 2.5 ML BOTTLE EACHEYE SCH (21:27)
--- NOTE | 2019-03-16 23:46 | NUR ---
GPS RN NOTES PT SLEEPING COMFORTABLE, NO RESPIRATORY DISTRESS NOTED.
[2019-03-17 08:00] VITALS: BP 113/68
[2019-03-17] MEDS: TIMOLOL 0.5% SOLN OPHTH 5 ML BOTTLE EACHEYE SCH ×2 (10:11→17:45)
[2019-03-17] MEDS: BRIMONIDINE TARTRATE OPHT SOLN 5 ML BOTTLE EACHEYE SCH ×2 (10:11→17:45)
[2019-03-17] MEDS: QUETIAPINE FUMARATE 25 MG TABLET PO SCH ×3 (10:12→22:22)
[2019-03-17] MEDS: DIVALPROEX SODIUM 125 MG TABLET.DR PO SCH ×2 (10:12→20:51)
[2019-03-17 16:00] VITALS: BP 125/64
--- NOTE | 2019-03-17 16:22 | NUR ---
GPS RN NOTES Patient taken down via wheelchair with RETURNED GOODS INSPECTOR to RADIOLOGY for CT OF HEAD WO CONTRAST at this time.
--- NOTE | 2019-03-17 16:30 | NUR ---
GPS RN NOTES Patient returned from RADIOLOGY at this time. Patient in stable condition. Will continue to monitor.
--- NOTE | 2019-03-17 19:45 | NUR ---
PAGED DR. RODRÍGUEZ, RE: CT BRAIN WITHOUT CONTRAST.
[2019-03-17 20:04] VITALS: BP 119/68
--- NOTE | 2019-03-17 20:50 | NUR ---
Dr. Grider returned the call and relayed him the result of CT Brain, no new order.
[2019-03-17] MEDS: LATANOPROST EYE DROP 0.005% 2.5 ML BOTTLE EACHEYE SCH (22:22)
[2019-03-18 08:00] VITALS: BP 139/76
[2019-03-18] MEDS: BRIMONIDINE TARTRATE OPHT SOLN 5 ML BOTTLE EACHEYE SCH ×2 (08:34→17:18)
[2019-03-18] MEDS: DIVALPROEX SODIUM 125 MG TABLET.DR PO SCH ×2 (08:35→20:50)
[2019-03-18] MEDS: QUETIAPINE FUMARATE 25 MG TABLET PO SCH ×3 (08:35→21:00)
[2019-03-18] MEDS: TIMOLOL 0.5% SOLN OPHTH 5 ML BOTTLE EACHEYE SCH ×2 (08:45→17:18)
[2019-03-18 16:00] VITALS: BP 111/69
[2019-03-18 20:28] VITALS: BP 97/60
[2019-03-18] MEDS: LATANOPROST EYE DROP 0.005% 2.5 ML BOTTLE EACHEYE SCH (21:00)
[2019-03-18] MEDS: TEMAZEPAM 7.5 MG CAPSULE PO PRN (23:19)
[2019-03-19 08:00] VITALS: BP 133/70
[2019-03-19] MEDS: TIMOLOL 0.5% SOLN OPHTH 5 ML BOTTLE EACHEYE SCH (09:00)
[2019-03-19] MEDS: DIVALPROEX SODIUM 125 MG TABLET.DR PO SCH (09:00)
[2019-03-19] MEDS: QUETIAPINE FUMARATE 25 MG TABLET PO SCH (09:00)
[2019-03-19] MEDS: BRIMONIDINE TARTRATE OPHT SOLN 5 ML BOTTLE EACHEYE SCH (09:00)
--- NOTE | 2019-03-19 09:00 | NUR ---
RN-CO: Dr Quispe ordered to discontinue hold and discharge patient. Noted.
--- NOTE | 2019-03-19 09:00 | NUR ---
DISCHARGE NOTE: Phone: Pt will be discharged at 1:00pm via private vehicle home to [address] [facility] [address]. Pts Jodie [phone] will be picking pt up and transporting home. Pts mood is euthymic with congruent affect. Pt denied visual/auditory hallucinations and denied suicidal/homicidal ideation. Pt will follow up at [facility] Address: [address] [place] [address] on Tuesday03/20/19 and will present at 9:00am for an intake. Pt will also follow up with Vice President Of Engineering: Dr. Ross Arcos Address: [address] [facility] [id number], [place] [address] . The multidisciplinary exit care form was done, printed, signed, and given to the patient.
--- NOTE | 2019-03-19 11:33 | NUR ---
APS: JANAK met with Kasey Huddleston ([phone]), from Adult Protective Services, and was asked not to discharge the pt back to his home with his due to the 's inability to care for the both of them. JANAK informed her that there are no alternative options for pts discharge and that his and pt wanted him to return home. JANAK informed her that pt has rights and that currently there is no acute criteria to continue psychiatric hospitalization.
--- NOTE | 2019-03-19 16:00 | NUR ---
MEDICAL SOCIAL WORKER NOTE :PATIENT ALERT ,CONFUSED ,VERBALLY RESPONSIVE,VS STABLE ,DENIES SI/HI/AVH NO C/O PAIN ,MED COMPLIANT .PATIENT SEEN BY DR. SALAZAR WITH DISCHARGE ORDERS CALLED BACK WITH DISCHARGE ORDERS .ALL BELONGINGS RETURNED TO PATIENT .ALL DISCHARGE INSTRUCTION GIVEN AND EXPLAINED TO PATIENT'S ABLE TO VERBALIZE UNDERSTANDING ,PRESCRIPTIONS GIVEN TO PATIENT AND EXPLAINED TO ABLE TO. VERBALIZE UNDERSTANDING .PATIENT DISCHARGE WITH AT 1600 .
--- NOTE | 2019-03-22 09:29 | NUR ---
UR NOTE: JANAK contacted Caterina [phone] ex:[phone] senior case manager at [facility] and left discharge clinical via voicemail.
== END 2019-03-19 14:00 | disposition home or self-care (01) | DRG 885 ==
LOC: ER 06:27 → GPS 13:05
PROVIDERS: ADMIT Psychiatry & Neurology Psychiatry; ATTEND Internal Medicine
DX: F29 Unspecified psychosis not due to a substance or known physiological condition (principal); F03.91 Unspecified dementia, unspecified severity, with behavioral disturbance; D68.59 Other primary thrombophilia; M81.0 Age-related osteoporosis without current pathological fracture; M19.90 Unspecified osteoarthritis, unspecified site; Z91.19 Patient's noncompliance with other medical treatment and regimen; Z73.6 Limitation of activities due to disability; H40.9 Unspecified glaucoma
CPT/HCPCS: 36415; 70450-TC; 71045-TC; 80048-TC; 80053-TC; 80061-TC; 80076-TC; 80305; 81000-TC; 83735-TC; 84100-TC; 84443-TC; 85025-TC; 87081-TC; 97116-TC; 97530-TC; G0480

== ENCOUNTER 2019-04-06 12:15 | Inpatient (IN) | payer MEDICARE, OTHER ==
[~2019-04-06] VITALS: Ht 172.7 cm; Wt 60.3 kg
[2019-04-06 12:55] LABS: BASOPHILS % (AUTO) 1.1 % (0.0-2.0); EOSINOPHILS % (AUTO) 2.1 % (0.0-6.0); HEMATOCRIT 41 % (39-51); HEMOGLOBIN 13.8 g/dL (13.5-17.5); LYMPHOCYTES % (AUTO) 24.9 % (20.0-44.0); MEAN CORPUSCULAR HGB CONC 34 g/dl (31.0-36.0); MEAN CORPUSCULAR VOLUME 97 fL (80-96); MONOCYTES # (AUTO) 0.4 /CMM (0.1-1.30); MONOCYTES % (AUTO) 8.6 % (2.0-12.0); NEUTROPHILS # (AUTO) 2.7 /CMM (1.8-8.9); NEUTROPHILS % (AUTO) 63.3 % (43.0-81.0); PLATELET COUNT (AUTO) 135 /CMM (150-450); RED BLOOD CELL COUNT(AUTO) 4.21 MIL/uL (4.5-6.0); WHITE BLOOD COUNT (AUTO) 4.2 K/uL (4.3-11.0)
[2019-04-06 13:02] LABS: CALCIUM, SERUM 8.8 mg/dL (8.5-10.1); CARBON DIOXIDE 29 mmol/L (21-32); CHLORIDE 108 mmol/L (98-107); CREATININE 1.1 mg/dL (0.6-1.3); GLUCOSE 93 mg/dL (74-106); POTASSIUM 4.4 mmol/L (3.5-5.1); SODIUM SERUM 144 mmol/L (136-145); UREA NITROGEN, BLOOD 29 mg/dL (7-18)
[2019-04-06] MEDS ORDERED: QUET25TA PO ×2 (13:03)
[2019-04-06] MEDS ORDERED: DIVA500T2 PO (13:03)
[2019-04-06 13:08] LABS: ACETAMINOPHEN 0 ug/ml (10-30); ALANINE AMINOTRANSFERASE 21 U/L (12-78); ALBUMIN 3.3 g/dL (3.4-5.0); ALCOHOL, BLOOD < 3 mg/dL (0-0); ALKALINE PHOSPHATASE 51 U/L (46-116); ASPARTATE AMINOTRANSFERASE 19 U/L (15-37); BILIRUBIN,DIRECT 0.1 mg/dL (0.0-0.2); BILIRUBIN,TOTAL 0.5 mg/dL (0.2-1.0); TOTAL PROTEIN, SERUM 6.3 g/dL (6.4-8.2)
[2019-04-06] MEDS ORDERED: TIMO5DRO18 OP (13:25)
[2019-04-06] MEDS ORDERED: LATA2.5D7 OP (13:25)
[2019-04-06] MEDS ORDERED: BRIM5DRO3 OP (13:29)
[2019-04-06 16:00] VITALS: BP 132/73
[2019-04-06] MEDS ORDERED: ACETAMINOPHEN 325 MG TABLET PO PRN (16:30)
[2019-04-06] MEDS ORDERED: MAGNESIUM HYDROXIDE 30 ML UDC PO PRN (16:30)
[2019-04-06] MEDS ORDERED: MAG HYDROX/AL HYDROX/SIMETH 30 ML UDC PO PRN (16:30)
[2019-04-06] MEDS ORDERED: BLOOD SUGAR DIAGNOSTIC 1 EACH STRIP IN ONE (16:30)
[2019-04-06] MEDS: TIMOLOL 0.5% SOLN OPHTH 5 ML BOTTLE OP SCH (17:46)
[2019-04-06] MEDS: BRIMONIDINE TARTRATE OPHT SOLN 5 ML BOTTLE OP SCH (17:47)
[2019-04-06 20:24] VITALS: BP 119/75
[2019-04-06] MEDS: LATANOPROST EYE DROP 0.005% 2.5 ML BOTTLE OP SCH (21:49)
[2019-04-06] MEDS: TEMAZEPAM 7.5 MG CAPSULE PO PRN (22:33)
[2019-04-06] MEDS: LORAZEPAM 0.5 MG TABLET PO PRN (23:29)
[2019-04-07 06:47] LABS: ALANINE AMINOTRANSFERASE 19 U/L (12-78); ALBUMIN 3.5 g/dL (3.4-5.0); ALKALINE PHOSPHATASE 46 U/L (46-116); ASPARTATE AMINOTRANSFERASE 21 U/L (15-37); BILIRUBIN,TOTAL 0.6 mg/dL (0.2-1.0); CALCIUM, SERUM 8.9 mg/dL (8.5-10.1); CARBON DIOXIDE 26 mmol/L (21-32); CHLORIDE 106 mmol/L (98-107); GLUCOSE 88 mg/dL (74-106); POTASSIUM 4.7 mmol/L (3.5-5.1); SODIUM SERUM 141 mmol/L (136-145); TOTAL PROTEIN, SERUM 6.6 g/dL (6.4-8.2); UREA NITROGEN, BLOOD 25 mg/dL (7-18)
[2019-04-07 07:15] LABS: CHOLESTEROL 158 mg/dL (<200); HDL CHOLESTEROL 50 mg/dL (40-60); LDL 102 mg/dL (0-99); TRIGLYCERIDES 57 mg/dL (30-150)
[2019-04-07 08:00] VITALS: BP 110/61
[2019-04-07] MEDS: BRIMONIDINE TARTRATE OPHT SOLN 5 ML BOTTLE OP SCH ×2 (08:58→16:35)
[2019-04-07] MEDS: TIMOLOL 0.5% SOLN OPHTH 5 ML BOTTLE OP SCH ×2 (08:58→16:35)
[2019-04-07 16:00] VITALS: BP 129/85
[2019-04-07] MEDS: QUETIAPINE FUMARATE 25 MG TABLET PO SCH ×2 (16:36→21:28)
[2019-04-07 20:00] VITALS: BP 111/58
[2019-04-07] MEDS: DIVALPROEX SODIUM 250 MG TABLET.DR PO SCH (21:28)
[2019-04-07] MEDS: LATANOPROST EYE DROP 0.005% 2.5 ML BOTTLE OP SCH (21:30)
[2019-04-08 07:08] LABS: APPEARANCE,URINE CLEAR (CLEAR); BILIRUBIN,URINE NEGATIVE (NEGATIVE); BLOOD, URINE NEGATIVE Ery/uL (NEGATIVE); COLOR,URINE YELLOW (YELLOW); KETONES,URINE TRACE (NEGATIVE); LEUKOCYTE ESTERASE ,URINE NEGATIVE (NEGATIVE); NITRITE, URINE NEGATIVE (NEGATIVE); PH,URINE 5.5 (5.0-8.0); PROTEIN,URINE NEGATIVE (NEGATIVE); UGLUCOSE NEGATIVE (NEGATIVE)
[2019-04-08 07:18] LABS: BACTERIA,URINE Rare /HPF (None Seen); RBC,URINE NONE SEEN /HPF (0-2); SQUAMOUS EPITHELIAL CELL,UR Rare /HPF (None Seen); WBC,URINE 0-2 /HPF (0-3)
[2019-04-08 08:00] VITALS: BP 99/58
[2019-04-08] MEDS: LORAZEPAM 0.5 MG TABLET PO PRN (08:56)
[2019-04-08] MEDS: DIVALPROEX SODIUM 250 MG TABLET.DR PO SCH ×2 (08:56→21:29)
[2019-04-08] MEDS: BRIMONIDINE TARTRATE OPHT SOLN 5 ML BOTTLE OP SCH ×2 (09:03→16:38)
[2019-04-08] MEDS: TIMOLOL 0.5% SOLN OPHTH 5 ML BOTTLE OP SCH ×2 (09:03→16:38)
[2019-04-08] MEDS: QUETIAPINE FUMARATE 25 MG TABLET PO SCH ×3 (10:46→21:29)
[2019-04-08 16:00] VITALS: BP 114/60
[2019-04-08 20:12] VITALS: BP 141/78
[2019-04-08] MEDS: TEMAZEPAM 7.5 MG CAPSULE PO PRN (21:30)
[2019-04-08] MEDS: LATANOPROST EYE DROP 0.005% 2.5 ML BOTTLE OP SCH (21:35)
[2019-04-09] MEDS: TIMOLOL 0.5% SOLN OPHTH 5 ML BOTTLE OP SCH ×2 (09:25→16:45)
[2019-04-09] MEDS: BRIMONIDINE TARTRATE OPHT SOLN 5 ML BOTTLE OP SCH ×2 (09:26→16:45)
[2019-04-09] MEDS: DIVALPROEX SODIUM 250 MG TABLET.DR PO SCH ×2 (09:27→21:37)
[2019-04-09 10:01] VITALS: BP 122/74
[2019-04-09] MEDS: QUETIAPINE FUMARATE 25 MG TABLET PO SCH ×3 (10:05→21:37)
[2019-04-09 12:40] VITALS: BP 100/52
[2019-04-09 16:00] VITALS: BP 129/70
[2019-04-09 19:57] VITALS: BP 119/63
[2019-04-09] MEDS: LATANOPROST EYE DROP 0.005% 2.5 ML BOTTLE OP SCH (21:38)
[2019-04-10 08:00] VITALS: BP 130/56
[2019-04-10] MEDS ORDERED: DIVALPROEX SODIUM 250 MG TABLET.DR PO SCH ×2 (09:00→17:00)
[2019-04-10] MEDS: DIVALPROEX SODIUM 250 MG TABLET.DR PO SCH (09:54)
[2019-04-10] MEDS: QUETIAPINE FUMARATE 25 MG TABLET PO SCH (09:54)
[2019-04-10] MEDS: BRIMONIDINE TARTRATE OPHT SOLN 5 ML BOTTLE OP SCH (09:54)
[2019-04-10] MEDS: TIMOLOL 0.5% SOLN OPHTH 5 ML BOTTLE OP SCH (09:55)
== END 2019-04-10 14:10 | disposition home or self-care (01) | DRG 885 ==
LOC: ER 12:19 → GPS 15:36
PROVIDERS: ADMIT Psychiatry & Neurology Psychiatry; ATTEND Internal Medicine
DX: F29 Unspecified psychosis not due to a substance or known physiological condition (principal); H40.9 Unspecified glaucoma; F03.90 Unspecified dementia, unspecified severity, without behavioral disturbance, psychotic disturbance, mood disturbance, and anxiety
CPT/HCPCS: 36415; 80048-TC; 80053-TC; 80061-TC; 80076-TC; 80305; 81000-TC; 82962-TC; 85025-TC; 87081-TC; G0480

== ENCOUNTER 2019-05-02 06:14 | Emergency (ER) | payer MEDICARE, OTHER ==
[~2019-05-02] VITALS: Ht 170.2 cm; Wt 61.7 kg
[~2019-05-02 06:14] MED LIST changes: -BRIM5DRO2 EACHEYE; +BRIM5DRO3 EACHEYE; +TIMO5DRO18 EACHEYE
[2019-05-02] MEDS ORDERED: LIDOCAINE 2% JEL UROJET 10 ML MM ONE (06:25)
--- NOTE | 2019-05-02 06:36 | NUR ---
BIB W/ C/O URINARY RETENTION. PER PT/ , PT LST VOIDED A FEW HOURS AGO AFTER DRINKING SOME FLUID. PT DENIED ANY PAIN OR DISCOMFORT AT THIS TIME. VSS. WILL CONT TO MONITOR ,
[2019-05-02] MEDS ORDERED: IV NS 0.9% 1,000 ML BAG IV ONE (07:00)
[2019-05-02 07:08] LABS: BASOPHILS % (AUTO) 0.9 % (0.0-2.0); EOSINOPHILS % (AUTO) 6.8 % (0.0-6.0); HEMATOCRIT 41 % (39-51); HEMOGLOBIN 14.1 g/dL (13.5-17.5); LYMPHOCYTES # (AUTO) 1.1 /CMM (0.8-4.8); LYMPHOCYTES % (AUTO) 25.5 % (20.0-44.0); MEAN CORPUSCULAR HGB CONC 34 g/dl (31.0-36.0); MEAN CORPUSCULAR VOLUME 98 fL (80-96); MONOCYTES # (AUTO) 0.4 /CMM (0.1-1.30); MONOCYTES % (AUTO) 9.1 % (2.0-12.0); NEUTROPHILS # (AUTO) 2.4 /CMM (1.8-8.9); NEUTROPHILS % (AUTO) 57.7 % (43.0-81.0); PLATELET COUNT (AUTO) 153 /CMM (150-450); RED BLOOD CELL COUNT(AUTO) 4.24 MIL/uL (4.5-6.0); WHITE BLOOD COUNT (AUTO) 4.2 K/uL (4.3-11.0)
[2019-05-02 07:14] LABS: CREATININE 1.1 mg/dL (0.6-1.3); POTASSIUM 3.9 mmol/L (3.5-5.1)
[2019-05-02 07:19] LABS: ALBUMIN 3.8 g/dL (3.4-5.0); BILIRUBIN,DIRECT 0.1 mg/dL (0.0-0.2); BILIRUBIN,TOTAL 0.5 mg/dL (0.2-1.0); TOTAL PROTEIN, SERUM 6.8 g/dL (6.4-8.2)
[2019-05-02 07:43] LABS: APPEARANCE,URINE CLEAR (CLEAR); BILIRUBIN,URINE NEGATIVE (NEGATIVE); BLOOD, URINE NEGATIVE Ery/uL (NEGATIVE); COLOR,URINE YELLOW (YELLOW); KETONES,URINE NEGATIVE (NEGATIVE); LEUKOCYTE ESTERASE ,URINE NEGATIVE (NEGATIVE); NITRITE, URINE NEGATIVE (NEGATIVE); PROTEIN,URINE NEGATIVE (NEGATIVE); UGLUCOSE NEGATIVE (NEGATIVE); UROBILINOGEN,URINE 0.2 EU/dL (0.2)
--- NOTE | 2019-05-02 08:47 | NUR ---
PATIENT CLEARED TO DISCHARGE BY DR SULLIVAN. DISCHARGE INSTRUCTIONS AND EDUCATION PROVIDED TO PATIENT ADN AND VERBALIZED UNDERSTANDING. IV REMOVED, TIP INTACT. PRESSURE DRESSING PLACED ON SITE. NAME BAND REMOVED. PATIENT LEFT UNIT WITH . PATIENT AMBULATORY WITH CANE. LEFT ER IN STABLE CONDITION. MD AWARE
[2019-05-02 08:50] VITALS: BP 118/69
[2019-05-08] MEDS ORDERED: QUET25TA PO (17:36)
[2019-05-08] MEDS ORDERED: SULF1TAB48 PO (17:37)
== END 2019-05-02 08:51 | disposition home or self-care (01) ==
LOC: ER 06:19
DX: R30.0 Dysuria (principal); F03.90 Unspecified dementia, unspecified severity, without behavioral disturbance, psychotic disturbance, mood disturbance, and anxiety
CPT/HCPCS: 36415; 51701; 80048; 80076; 81001; 85025; 87086; 99284; J7030; 81000-TC; J3490

== ENCOUNTER 2019-05-05 03:24 | Inpatient (IN) | payer MEDICARE ==
[~2019-05-05] VITALS: Ht 167.6 cm; Wt 59.5 kg
[2019-05-05] MEDS ORDERED: LIDOCAINE 2% JEL UROJET 10 ML MM ONE (05:25)
[2019-05-05 06:18] LABS: APPEARANCE,URINE SL CLOUDY (CLEAR); BILIRUBIN,URINE NEGATIVE (NEGATIVE); BLOOD, URINE 3+ Ery/uL (NEGATIVE); COLOR,URINE ORANGE (YELLOW); KETONES,URINE 1+ (NEGATIVE); LEUKOCYTE ESTERASE ,URINE 1+ (NEGATIVE); NITRITE, URINE POSITIVE (NEGATIVE); PH,URINE 5.5 (5.0-8.0); PROTEIN,URINE 1+ mg/dl (NEGATIVE); UGLUCOSE NEGATIVE (NEGATIVE)
[2019-05-05] MEDS ORDERED: IV NS 0.9% 1,000 ML BAG IV ONE (06:30)
--- NOTE | 2019-05-05 06:35 | NUR ---
PT A/O X2 WITH EPISODES OF CONFUSION AND AT BEDSIDE. MD AT BEDSIDE. IV STARTED RFA #20. FLUIDS INFUSING.
[2019-05-05 06:37] LABS: BACTERIA,URINE 2+ /HPF (None Seen); RBC,URINE 51-80 /HPF (0-2); WBC,URINE 21-50 /HPF (0-3)
[2019-05-05] MEDS ORDERED: CEFTRIAXONE 1GM BAG (ER ONLY) 50 ML IV ONE (06:50)
[2019-05-05] MEDS ORDERED: CEFTRIAXONE 1GM BAG (ER ONLY) 1 GM/50 ML PIGGYBACK IV ONE (07:00)
--- NOTE | 2019-05-05 07:12 | NUR ---
RECEIVED REPORT FROM NORAH AGUDELO FOR [facility], PT IS AAOX3, NOT IN RESPIRATORY DISTRESS, V/S STABLE, AWAITING ER PHLEB FOR BLOOD DRAW.
[2019-05-05 07:29] LABS: HEMATOCRIT 37 % (39-51); HEMOGLOBIN 12.3 g/dL (13.5-17.5); MEAN CORPUSCULAR HGB CONC 33 g/dl (31.0-36.0); MEAN CORPUSCULAR VOLUME 100 fL (80-96); PLATELET COUNT (AUTO) 113 /CMM (150-450); WHITE BLOOD COUNT (AUTO) 14.2 K/uL (4.3-11.0)
[2019-05-05 07:37] LABS: CALCIUM, SERUM 9.2 mg/dL (8.5-10.1); POTASSIUM 3.7 mmol/L (3.5-5.1)
--- NOTE | 2019-05-05 08:05 | NUR ---
PT PRIMARY MD REYNALDO MAURER.
--- NOTE | 2019-05-05 08:09 | NUR ---
PT IS BACK FROM THE CT SCAN.
[2019-05-05] MEDS ORDERED: QUET25TA PO (08:37)
[2019-05-05] MEDS ORDERED: DIVA250T4 PO (08:37)
--- NOTE | 2019-05-05 08:40 | NUR ---
CALLED NURSING SUP. FOR MS BED.
--- NOTE | 2019-05-05 08:41 | NUR ---
SEEN AND EXAMINED BY ERNST BAKER
[2019-05-05] MEDS ORDERED: ACETAMINOPHEN 325 MG TABLET PO PRN (09:00)
[2019-05-05] MEDS ORDERED: ONDANSETRON HCL/PF 4 MG/2 ML VIAL IVP PRN (09:00)
[2019-05-05] MEDS ORDERED: MAGNESIUM HYDROXIDE 30 ML UDC PO PRN (09:00)
[2019-05-05] MEDS ORDERED: MAG HYDROX/AL HYDROX/SIMETH 30 ML UDC PO PRN (09:00)
--- NOTE | 2019-05-05 09:11 | NUR ---
REPORT GIVEN TO NORAH CHANDLER FOR [facility].
[2019-05-05 10:00] VITALS: BP 115/58
[2019-05-05] MEDS ORDERED: QUETIAPINE FUMARATE 25 MG TABLET PO ONE ×2 (10:30→19:00)
[2019-05-05] MEDS: IV NS 0.9% 1,000 ML IV PRN (11:13)
[2019-05-05] MEDS: DIVALPROEX SODIUM 250 MG TABLET.DR PO SCH ×2 (13:30→16:31)
[2019-05-05 13:58] LABS: BAND % (MANUAL) 4 % (0.0-5.0); EOSINOPHILS % (MANUAL) 1 % (0-4); NEUTROPHILS % (MANUAL) 95 (42-76)
[2019-05-05 16:00] VITALS: BP 104/47
[2019-05-05] MEDS: QUETIAPINE FUMARATE 25 MG TABLET PO SCH (16:31)
[2019-05-05] MEDS: BRIMONIDINE TARTRATE OPHT SOLN 5 ML BOTTLE OP SCH (18:25)
[2019-05-05] MEDS: TIMOLOL 0.5% SOLN OPHTH 5 ML BOTTLE EACHEYE SCH (18:26)
--- NOTE | 2019-05-05 18:43 | NUR ---
MS/RN NOTE THE PATIENT IS CONFUSED, ALERT AND ORIENTED ONLY TO SELF. PATIENT CONSTANTLY TRYING TO GET OUT OF BED, YELLING, KICKING NURSES WITH NO APPARENT DISTRESS. DR BAKER IS MADE AWARE WITH NEW ORDER SEROQUEL 25 MG TO BE GIVEN AT 1900 ONE TIME ORDER. THE ORDER IS READ BACK, VERIFIED. NOTED AND CARRIED OUT.
--- NOTE | 2019-05-05 19:15 | NUR ---
MS/RN NOTE BLADDER SCAN DONE AND NOTED URINE RETENTION OF 400. DR BAKER IS MADE AWARE WITH NEW ORDER OF ROSENBERG CATH INSERTION. READ BACK, VERIFIED. NOTED AND CARRIED OUT.
--- NOTE | 2019-05-05 19:26 | NUR ---
MS/RN NOTE ROSENBERG CATH INSERTED. DRAINED TOTAL OF 500 CLEAR, YELLOW COLOR URINE.
--- NOTE | 2019-05-05 19:27 | NUR ---
MS/RN NOTE THE PATIENT ALERT AND ORIENTED X1. PATIENT RECEVING OXYGEN AT 2L/MIN VIA NASAL CANNULA AND SATURATION IS AT 98%. DENIES SOB. RESPIRATION REGULAR AND UNLABORED. DENIES PAIN. THE PATIENT IS WITH A SITTER. RFA G 20 PATENT AND NORMAL SALINE INFUSING AT 100ML/HR AND NO S/S INFILTRATION NOTED. BED LOW AND LOCKED. SIDE RAILS UP X3. CALL LIGHT WITHIN REACH. WILL ENDORSE TO NIGHTS SHIFT. RECEIVED ORDER FROM DR BAKER FOR SITTER. NOTED AND CARRIED OUT.
--- NOTE | 2019-05-05 19:45 | NUR ---
RN NOTES RECEIVED PT. AWAKE ON BED, A/OX1. CONFUSED , SITTER AT BEDSIDE, PT TRYING TO REMOVED HIS IV LINE , COVERS IT WITH KERLIX,F/C DRAINING YELLOW URINE, NO PAIN NOTED, NO SOB, BED IN LOW POSITION, CALL LIGHT WITHIN REACH, [id number], CONTINUE TO MONITOR
[2019-05-05 20:00] VITALS: BP 117/55
[2019-05-05] MEDS: LATANOPROST EYE DROP 0.005% 2.5 ML BOTTLE EACHEYE SCH (21:52)
[2019-05-05] MEDS: HYDROCODONE/APAP 5/325MG 1 EACH TABLET PO PRN (21:53)
--- NOTE | 2019-05-05 22:00 | NUR ---
RN NOTES COMPLAINED OF GENERALIZED PAIN - NORCO 5/325MG PO GIVEN ORDERED, V/S STABLE
[2019-05-06] MEDS: IV NS 0.9% 1,000 ML IV PRN ×3 (01:00→20:04)
--- NOTE | 2019-05-06 06:26 | NUR ---
RN NOTES SLEEPING BUT AROUSABLE,NO PAIN NOTED, NO SOB, MORNING CARE RENDERED, SITTER AT BEDSIDE, NO PAIN NOTED, NO SOB, SIDERAILSUPX2, PT. NEEDS ATTENDED
[2019-05-06 06:50] LABS: BASOPHILS % (AUTO) 0.4 % (0.0-2.0); EOSINOPHILS % (AUTO) 1.5 % (0.0-6.0); HEMATOCRIT 38 % (39-51); LYMPHOCYTES # (AUTO) 0.4 /CMM (0.8-4.8); LYMPHOCYTES % (AUTO) 6.1 % (20.0-44.0); MEAN CORPUSCULAR HGB CONC 34 g/dl (31.0-36.0); MEAN CORPUSCULAR VOLUME 98 fL (80-96); MONOCYTES # (AUTO) 0.6 /CMM (0.1-1.30); MONOCYTES % (AUTO) 7.8 % (2.0-12.0); NEUTROPHILS # (AUTO) 6.1 /CMM (1.8-8.9); NEUTROPHILS % (AUTO) 84.2 % (43.0-81.0); PLATELET COUNT (AUTO) 113 /CMM (150-450); RED BLOOD CELL COUNT(AUTO) 3.87 MIL/uL (4.5-6.0); WHITE BLOOD COUNT (AUTO) 7.3 K/uL (4.3-11.0)
[2019-05-06 06:56] LABS: CALCIUM, SERUM 8.5 mg/dL (8.5-10.1); CREATININE 0.9 mg/dL (0.6-1.3); PHOSPHORUS 2.4 mg/dL (2.5-4.9); POTASSIUM 3.7 mmol/L (3.5-5.1)
--- NOTE | 2019-05-06 07:30 | NUR ---
RN MS NOTES PT ASLEEP, RESPIRATIONS REGULAR AND NOT LABORED, NO SIGN OF PAIN OR DISTRESS, SITTER AT BEDSIDE, IV FLUIDS INFUSING WELL, CALL LIGHT WITHIN REACH, SAFETY PRECAUTIONS OBSERVED.
[2019-05-06 08:00] VITALS: BP 112/69
[2019-05-06] MEDS: CEFTRIAXONE 1 G in IV D5W 50 ML IV SCH (08:13)
[2019-05-06] MEDS: DIVALPROEX SODIUM 250 MG TABLET.DR PO SCH ×3 (08:20→16:23)
[2019-05-06] MEDS: TIMOLOL 0.5% SOLN OPHTH 5 ML BOTTLE EACHEYE SCH ×2 (08:21→16:39)
[2019-05-06] MEDS: QUETIAPINE FUMARATE 25 MG TABLET PO SCH ×2 (08:21→16:23)
[2019-05-06] MEDS: BRIMONIDINE TARTRATE OPHT SOLN 5 ML BOTTLE OP SCH ×2 (08:21→16:38)
[2019-05-06] MEDS ORDERED: K PHOS NEUTRAL 250 MG TABLET PO ONE (11:00)
--- NOTE | 2019-05-06 11:37 | NUR ---
RN MS NOTES PT IN BED, ASLEEP, EASY TO AROUSE, ALERT TO SELF, WITH CONFUSION, SEEN BY DR. BAKER, IV FLUIDS INFUSING WELL, F/C IN PLACE AND DRAINING WELL, ASSISTED WITH NEEDS, SITTER AT BEDSIDE, SAFETY PRECAUTIONS OBSERVED.
[2019-05-06 16:00] VITALS: BP 142/70
[2019-05-06] MEDS: HYDROCODONE/APAP 5/325MG 1 EACH TABLET PO PRN (16:23)
--- NOTE | 2019-05-06 18:09 | NUR ---
RN MS NOTES PT IN BED, AWAKE, ALERT TO SELF, VERBALLY RESPONSIVE, WITH CONFUSION, DENIES PAIN AT THIS TIME, RESPIRATIONS NORMAL, IV FLUIDS INFUSING WELL, F/C IN PLACE DRAINING WELL, ASSISTED WITH MEALS, ENCOURAGED INCREASED PO INTAKE, JOHN AT BEDSIDE, PM MEDS GIVEN, PM CARE PROVIDED, SAFETY PRECAUTIONS OBSERVED.
--- NOTE | 2019-05-06 19:20 | NUR ---
RN MS OPENING NOTES RECEIVED PT IN BED, AWAKE ALERT ORIENTED X2-3, BUT FORGETFUL. BREATHING EVEN AND UNLABORED 2 L OF O2. NO COMPLAINT OF PAIN OR DISCOMFORT AT THIS TIME. IV ACCESS ON THER FA #20G WITH NS @100ML/HR. F/C IN PLACE. BED IN LOWEST LOCKED POSITION, CALL LIGHT WITHIN REACH AT ALL TIME. WILL CONTINUE TO MONITOR FREQUENTLY
[2019-05-06] MEDS: TEMAZEPAM 7.5 MG CAPSULE PO PRN (19:49)
[2019-05-06] MEDS: LATANOPROST EYE DROP 0.005% 2.5 ML BOTTLE EACHEYE SCH (21:18)
[2019-05-07] MEDS: IV NS 0.9% 1,000 ML IV PRN ×2 (05:59→21:30)
--- NOTE | 2019-05-07 06:18 | NUR ---
RN MS CLOSING NOTES REMAINS IN BED, AWAKE ALERT ORIENTED X2-3, BUT FORGETFUL. BREATHING EVEN AND UNLABORED 2 L OF O2. NO COMPLAINT OF PAIN OR DISCOMFORT AT THIS TIME. IV ACCESS ON THER FA #20G WITH NS @100ML/HR. F/C IN PLACE. BED IN LOWEST LOCKED POSITION, SITTER AT BEDSIDE, CALL LIGHT WITHIN REACH AT ALL TIME. WILL ENDORSE TO DAY NURSE FOR [facility]
--- NOTE | 2019-05-07 07:50 | NUR ---
MS RN OPENING NOTES PATIENT IN BED ALERT AND ORIENTED X2, FORGETFUL AND WITH EPISODES OF CONFUSION. AFEBRILE WITH NO S/S O DISTRESS OBSERVED. BREATHING REGULAR AND UNLABORED IN ROOM AIR. RIGHT FOREARM IV G20 INTACT AND PATENT, INFUSING WELL WITH NO BLEEDING OR S/S OF INFILTRATION/INFECTION. ROSENBERG CATH INTACT, DRAINING WELL WITH CLEAR YELLOW URINE, MODERATE IN AMOUNT. MAINTAINED ON FALL PRECAUTIONS WITH ONE ON ONE SITTER ON BEDSIDE. NO COMPLAINTS OF PAIN/DISCOMFORT OF THE TIME. FOR SWALLOW EVALUATION TODAY, WILL CONTINUE TO MONITOR.
--- NOTE | 2019-05-07 08:00 | NUR ---
RN NOTES RECEIVED PATIENT IN THE ROOM A/O X1, CONFUSED , GET IRRITABLE EASILY., DEMANDED. PATIENT HAS NO ACUTE RESPIRATORY DISTRESS, V/S STABLE, INFUSING NS AT RIGHT FA INTACT, ADMINISTERED SCHEDULED MEDICATION, F/C DRAINING YELLOW OUTPUT. 1:1 SITTER NEXT TO THE BED FOR SAFETY, CALL LIGHT WITHIN TO REACH. SAFETY PRECAUTION MAINTAINED ALL THE TIME.
[2019-05-07 08:37] VITALS: BP 131/67
[2019-05-07] MEDS: CEFTRIAXONE 1 G in IV D5W 50 ML IV SCH (10:00)
[2019-05-07] MEDS: DIVALPROEX SODIUM 250 MG TABLET.DR PO SCH (10:00)
[2019-05-07] MEDS: QUETIAPINE FUMARATE 25 MG TABLET PO SCH ×2 (10:00→17:04)
--- NOTE | 2019-05-07 10:00 | NUR ---
RN NOTES GET ORDER FROM DNP ERNST TO D/C ROSENBERG CATHETER, ORDER TAKEN AND CARRIED .
[2019-05-07] MEDS: TIMOLOL 0.5% SOLN OPHTH 5 ML BOTTLE EACHEYE SCH ×2 (10:01→17:05)
[2019-05-07] MEDS: BRIMONIDINE TARTRATE OPHT SOLN 5 ML BOTTLE OP SCH ×2 (10:01→17:05)
--- NOTE | 2019-05-07 10:05 | NUR ---
RN NOTES REMOVED F/C AT THIS TIME 550 ML OUTPUT, PATIENT STABLE, ENCOURAGED TO INCREASE FLUID INTAKE. CONTINUED MONITORING.
[2019-05-07] MEDS: DIVALPROEX SODIUM 125 MG CAP.SPRINK PO SCH ×2 (13:40→17:04)
[2019-05-07] MEDS ORDERED: QUETIAPINE FUMARATE 25 MG TABLET PO PRN (15:00)
--- NOTE | 2019-05-07 15:00 | NUR ---
rn notes TRANSFERRED PATIENT TO MED/SURG 3 ROOM 323 1 AT THIS TIME. PATIENT A/O X1 CONFUSED. PATIENT HAS NO ACUTE RESPIRATORY DISTRESS, V/S STABLE, REFUSED PAIN. INFUSING NS AT 100 ML/HR ON RIGHT FA INTACT.PATIENT URINATED AFTER REMOVAL OF ROSENBERG CATH 50ML USING URINAL. 1:1 SITTER NEXT TO THE BED FOR SAFETY. REPORT GIVEN JAROD ALMAZAN. RN VERBALIZED UNDERSTANDING FOR FOLLOW PLAN OF CARE.
--- NOTE | 2019-05-07 15:04 | NUR ---
MS RN NOTES PT TRANSFERRED TO RM 323-1 FROM RM 204-1 VIA PT'S BED ACCOMPANIED BY NORAH CUNNINGHAM AND PT'S SITTER AT 1500. PT IS A/O X1-2 AND VERBALLY RESPONSIVE, DENIES PAIN OR DISCOMFORTS AT THIS TIME. PT NOTED CONFUSED AND RE-ORIENTED TO UNIT AND STAFF. ON ROOM AIR, BREATHING EVEN AND UNLABORED. IV ACCES ON RFA G#20 INTACT AND PATENT, IVF OF NS @100ML/HR INFUSING WELL WITH NO BLEEDING OR S/S OF INFILTRATIONS NOTED @ SITE. SAFETY MEASURES MAINTAINED. BED IN LOW, LOCKED POSITION WITH SR UP X2. CALL LIGHT WITHIN REACH. WILL CONTINUE TO MONITOR.
[2019-05-07 16:00] VITALS: BP 116/64
--- NOTE | 2019-05-07 18:48 | NUR ---
MS RN CLOSING NOTES PATIENT IN BED AWAKE, A/O X1-2. 1;1 SITTER AT BEDSIDE. VERBALLY RESPONSIVE, FORGETFUL WITH EPISODES OF CONFUSION NOTED. ON ROOM AIR, TOLERATING WELL WITH NO ACUTE RESPIRATORY DISTRESS NOTED. PIV ON RFA G#20 INTACT AND PATENT, IVF OF NS @ 100ML/HR INFUSING WELL, NO BLEEDING OR S/S OF INFILTRATIONS NOTED. ALL NEEDS AND CARE PROVIDED WELL. FALL AND SAFETY MEASURES KEPT IN PLACE. BED IN LOW, LOCKED POSITION WITH SR UP X2. CALL LIGHT WITHIN REACH. WILL ENDORSE TO PRECISION MACHINIST NURSE FOR [place]
--- NOTE | 2019-05-07 21:05 | NUR ---
Recieved awake and alert, follows simple direction. Verbalized he doesn't want to be bothered. Explained to him he is in the hospital and I do need to care for him. Took cranberry juice 2 swallows. Sitter at the bedside. Bladder scanned 144 ml seen. offered him to stand to void, refused,"I don't need to". will continue to monitor
[2019-05-07] MEDS: LATANOPROST EYE DROP 0.005% 2.5 ML BOTTLE EACHEYE SCH (21:31)
--- NOTE | 2019-05-07 23:30 | NUR ---
Bladder scan shows 733 ml, PRODUCTION WELDING SUPERVISOR Silva Knox here, stated to put the jose back in. Inserted #16 without problems.
--- NOTE | 2019-05-08 04:58 | NUR ---
ENDING NOTES: REMAINS CONFUSED WHEN TALKING WITH HIM, "WHERE ARE MY PARENTS" " i WANT TO TALK TO MY dad" " i WANT TO GO THE [facility] THAT IS WHERE I AM FROM". HE IS COOPERATIVE. YELLS OUT LOUNDY WHEN IV STARTED, URINAL PUT IN PLACE , HE YELLS OUT WHEN TURIQUENT PLACED TO START THE IV. AT 2100 BLADDER SCAN DONE 144 ML. WAITED UNTIL 2300 AND DID THE BLADDER SCAN AGAIN AND SEEN 732 ML SPOKE WITH MD MALACHI CASPER DIRECTOR NICU AND SHE INSTRUCTED ME TO PUT THE ROSENBERG BACK IN. I WAS ABLE TO DIVERT HIS ATTENTION DURING THE ROSENBERG INSERTION SO HE YELLED LESS. HE IS FRIENDLY AND COOPERATIVE. MULTIPLE ATTEMPS TO GET HIM TO VOID WERE ATTEMPED. OOB STANDING RUNNING WATER DRINKING OF WATER, ALL UNSUCCESSFUL.
--- NOTE | 2019-05-08 07:08 | NUR ---
MS RN NOTES PATIENT IN BED ALERT ORIENTED X 1. NO ACUTE DISTRESS NOTED. BREATHING UNLABORED. IV ACCESS PATENT AND INTACT, NO REDNESS, NO SWELLING NOTED. ROSENBERG CATHETER IN PLACE. SAFETY MEASURE IN PLACE, CALL LIGHT WITHIN REACH. WILL CONTINUE TO MONITOR ACCORDINGLY.
[2019-05-08 08:00] VITALS: BP 122/70
[2019-05-08] MEDS: CEFTRIAXONE 1 G in IV D5W 50 ML IV SCH (09:07)
[2019-05-08] MEDS: QUETIAPINE FUMARATE 25 MG TABLET PO SCH ×2 (09:08→17:37)
[2019-05-08] MEDS: BRIMONIDINE TARTRATE OPHT SOLN 5 ML BOTTLE OP SCH ×2 (09:08→17:37)
[2019-05-08] MEDS: TIMOLOL 0.5% SOLN OPHTH 5 ML BOTTLE EACHEYE SCH ×2 (09:08→17:37)
[2019-05-08] MEDS: DIVALPROEX SODIUM 125 MG CAP.SPRINK PO SCH ×3 (09:08→17:37)
[2019-05-08] MEDS: IV NS 0.9% 1,000 ML IV PRN ×2 (10:32→20:55)
[2019-05-08 16:00] VITALS: BP 127/72
[2019-05-08] MEDS ORDERED: QUET25TA PO (17:36)
[2019-05-08] MEDS ORDERED: SULF1TAB48 PO (17:37)
--- NOTE | 2019-05-08 19:00 | NUR ---
MS RN NOTES PATIENT IN BED ALERT ORIENTED X 1. NO ACUTE DISTRESS NOTED. BREATHING UNLABORED. IV ACCESS PATENT AND INTACT, NO REDNESS, NO SWELLING NOTED. ROSENBERG CATHETER IN PLACE. DUE MEDICATIONS GIVEN, NO ASE NOTED. NEEDS ATTENDED AND ANTICIPATED. KEPT CLEAN DRY AND COMFORTABLE. SAFETY MEASURE IN PLACE, CALL LIGHT WITHIN REACH. ENDORSED TO NIGHT NURSE FOR CONTINUITY OF CARE.
--- NOTE | 2019-05-08 19:15 | NUR ---
RN PM OPENING NOTE BEDSIDE REPORT RECIEVED FROM LUCIA ALMAZAN. PATIENT SEEN RESTING QUIETLY SEEN WITH EYES CLOSED IN NO APPARENT DISTRESS. PER REPORT PATIENT IS ALERT AND ORIENTED X2 AND ARMINIAN SPEAKING. PATIENT BREATHING EVEN AND UNLABORED AND IS ON 2LNC. LFA 18 GAUGE INFUSING NS AT 75 ML/HR WITH NO S/S OF INFILTRATION WILL CONT TO MONITOR. PLAN IS TO DISCHARGE TO FACILITY TOMORROW. Addendum: 05/08/19 at 1948 by VITO LEE RN ENTERED ON WRONG PATIENT
--- NOTE | 2019-05-08 19:30 | NUR ---
RN PM OPENING NOTE PATIENT SEEN IN BED WITH EYES CLOSED. LEXII ANDREA AT THE BEDSIDE. BEDSIDE REPORT RECIEVED FROM RUDI ALMAZAN. PATIENT REPORTEDLY CONFUSED/FORGETFUL BUT ALERT ABLE TO FOLLOW SIMPLE DIRECTIONS. PATIENT HAS FC INSERTED D/T SOME URINARY RETENTION YESTERDAY AND WAS CONT BY PHYSICIAN. IT IS SEEN DRAINING YELLOW/PETER URINE. IV INFUSING TO LEFT ARM WITH NO S/S OF INFILTRATION. WILL CONT TO MONITOR.
[2019-05-08 20:00] VITALS: BP 131/70
[2019-05-08] MEDS: HYDROCODONE/APAP 5/325MG 1 EACH TABLET PO PRN (20:41)
[2019-05-08] MEDS: LATANOPROST EYE DROP 0.005% 2.5 ML BOTTLE EACHEYE SCH (21:03)
[2019-05-09] MEDS: TEMAZEPAM 7.5 MG CAPSULE PO PRN (01:45)
[2019-05-09] MEDS: IV NS 0.9% 1,000 ML IV PRN (07:38)
--- NOTE | 2019-05-09 07:40 | NUR ---
MS RN OPENING NOTE PATIENT IN BED RESTING COMFORTABLY. PATIENT IN NO ACUTE DISTRESS. NO SOB NOTED. NO FACIAL GRIMACING NOTED. PATIENT BREATHING IS EVEN AND UNLABORED. IV INTACT. ROSENBERG CATHETER HANGING TO GRAVITY. PATIENT IS MAINTAINED ON A 1:1 SITTER. PATIENT BED IS LOCKED AND IN LOWEST POSITION. CALL LIGHT WITHIN REACH. WILL CONTINUE TO MONITOR.
[2019-05-09 08:00] VITALS: BP 141/76
[2019-05-09] MEDS: CEFTRIAXONE 1 G in IV D5W 50 ML IV SCH (09:11)
[2019-05-09] MEDS: DIVALPROEX SODIUM 125 MG CAP.SPRINK PO SCH ×2 (09:11→12:59)
[2019-05-09] MEDS: QUETIAPINE FUMARATE 25 MG TABLET PO SCH (09:12)
[2019-05-09] MEDS: BRIMONIDINE TARTRATE OPHT SOLN 5 ML BOTTLE OP SCH (09:14)
[2019-05-09] MEDS: TIMOLOL 0.5% SOLN OPHTH 5 ML BOTTLE EACHEYE SCH (09:14)
--- NOTE | 2019-05-09 10:00 | NUR ---
MS RN NOTE SPOKE WITH MICHEL SALAZAR REGARDING CRISIS EVALUATION. MD REVIEWED AND ASSESSED PATIENT, PATIENT STILL OKAY TO BE DISCHARGED LATER TODAY. NO EVALUATION NEEDED. ORDERS TO REMOVE ROSENBERG. WILL FOLLOW ORDERS.
--- NOTE | 2019-05-09 13:32 | NUR ---
MS RN NOTE PATIENT HAS BEEN VOIDING IN DIAPER SINCE ROSENBERG CATHETER WAS REMOVED AT 1000.
[2019-05-09 15:56] VITALS: BP 120/75
--- NOTE | 2019-05-09 17:00 | NUR ---
MS RN NOTE SKIN ASSESSED. NO NEW SKIN BREAKDOWN NOTED. IV REMOVED. NO REDNESS OR SWELLING. PATIENT IN NO PAIN OR DISCOMFORT AT THIS TIME.
--- NOTE | 2019-05-09 17:44 | NUR ---
MS PHOTOGRAPHIC ENGINEER NOTE PATIENT MEDICALLY STABLE. PATIENT IN NO ACUTE DISTRESS. NO SOB NOTED. PATIENT BREATHING IS EVEN AND UNLABORED. PATIENT VITAL SIGNS WNL. PATIENT WAS MAINTAINED ON A 1:1 SITTER THROUGHOUT SHIFT. DC INSTRUCTIONS PROVIDED TO PATIENT AND . PATIENT IS CONFUSED AND UNABLE TO COMPREHEND. VERBALIZES UNDERSTANDING. PATIENT BELONGINGS ALL WITH PATIENTS . BELONGINGS LIST AND DC PACKET SIGNED BY TWO NURSES DUE TO PATIENT UNABLE TO SIGN. DC PACKET AND PRESCRIPTION WITH PATIENT AND . PATIENT SKIN ASSESSED, NO NEW SKIN BREAKDOWN NOTED. PATIENT ID BAND REMOVED. IV REMOVED. PATIENT KEPT CLEAN, DRY, AND COMFORTABLE. PATIENT HAS BEEN VOIDING IN DIAPER AND URINAL THROUGHOUT SHIFT. PATIENT EXTREMITIES OFFLOADED ON PILLOWS. PATIENT REPOSITIONED Q2H MUCH PATIENT WOULD ALLOW. ALL NURSING NEEDS MET. PATIENT GOING BACK HOME WITH BY CAR. AWARE OF DISCHARGE. Addendum: 05/09/19 at 1820 by EMRE SCHWARTZ RN PATIENT DISCHARGED TO HOME WITH AROUND 1715.
== END 2019-05-09 17:00 | disposition home or self-care (01) | DRG 871 ==
LOC: ER 03:29 → MEDSG2 09:10 → MED 05-07 15:07
PROVIDERS: ADMIT Nurse Practitioner Acute Care; ATTEND Hospitalist
DX: A41.9 Sepsis, unspecified organism (principal); G93.41 Metabolic encephalopathy; N39.0 Urinary tract infection, site not specified; F02.81 Dementia in other diseases classified elsewhere, unspecified severity, with behavioral disturbance; H40.9 Unspecified glaucoma; D53.9 Nutritional anemia, unspecified; E86.0 Dehydration; G30.9 Alzheimer's disease, unspecified; F39 Unspecified mood [affective] disorder; B96.20 Unspecified Escherichia coli [E. coli] as the cause of diseases classified elsewhere; I71.4 Abdominal aortic aneurysm, without rupture
CPT/HCPCS: 36415; 80048-TC; 80061-TC; 81000-TC; 83735-TC; 84100-TC; 85025-TC; 87081-TC; 87086-TC; 87186-TC; 92526; 92611-TC; 97116-TC; 97530-TC; G0378; J0696; J3490; J7030; J7060

== ENCOUNTER 2019-05-24 01:35 | Emergency (ER) | payer MEDICARE ==
[~2019-05-24] VITALS: Ht 170.2 cm; Wt 59.0 kg
[~2019-05-24 01:35] MED LIST changes: +DIVA250T4 PO; +QUET25TA PO; +SULF1TAB48 PO
--- NOTE | 2019-05-24 01:50 | NUR ---
PT BIB.C/O "HAVING GROIN PAIN" -SOB. DEMENTED AT BASELINE. -ACUTE DISTRESS AT THIS TIME.
[2019-05-24] MEDS ORDERED: IV NS 0.9% 500 ML BAG IV ONE (02:00)
[2019-05-24] MEDS ORDERED: LORAZEPAM INJ 2 MG/ML VIAL IV ONE (02:00)
[2019-05-24] MEDS ORDERED: LORAZEPAM INJ 2 MG/ML VIAL ONE (02:12)
[2019-05-24 02:14] LABS: BASOPHILS # (AUTO) 0.1 /CMM (0.0-0.2); BASOPHILS % (AUTO) 1.4 % (0.0-2.0); EOSINOPHILS % (AUTO) 4.3 % (0.0-6.0); HEMATOCRIT 40 % (39-51); HEMOGLOBIN 13.5 g/dL (13.5-17.5); LYMPHOCYTES # (AUTO) 1.5 /CMM (0.8-4.8); LYMPHOCYTES % (AUTO) 24.1 % (20.0-44.0); MEAN CORPUSCULAR HGB CONC 34 g/dl (31.0-36.0); MEAN CORPUSCULAR VOLUME 97 fL (80-96); MONOCYTES # (AUTO) 0.4 /CMM (0.1-1.30); NEUTROPHILS # (AUTO) 3.9 /CMM (1.8-8.9); NEUTROPHILS % (AUTO) 63.2 % (43.0-81.0); PLATELET COUNT (AUTO) 188 /CMM (150-450); WHITE BLOOD COUNT (AUTO) 6.1 K/uL (4.3-11.0)
[2019-05-24 02:20] LABS: CALCIUM, SERUM 9.3 mg/dL (8.5-10.1); CREATININE 0.9 mg/dL (0.6-1.3); POTASSIUM 4.4 mmol/L (3.5-5.1)
[2019-05-24 02:24] LABS: ALBUMIN 3.7 g/dL (3.4-5.0); BILIRUBIN,DIRECT 0.1 mg/dL (0.0-0.2); BILIRUBIN,TOTAL 0.4 mg/dL (0.2-1.0); TOTAL PROTEIN, SERUM 6.7 g/dL (6.4-8.2)
--- NOTE | 2019-05-24 03:18 | NUR ---
Patient is resting comfortably in bed with eyes closed. Easily aroused. VSS
--- NOTE | 2019-05-24 05:28 | NUR ---
JOHN () ETA 30 MINS.
[2019-05-24 06:28] VITALS: BP 112/68
== END 2019-05-24 06:30 | disposition home or self-care (01) ==
LOC: ER 01:35
DX: R10.84 Generalized abdominal pain (principal); F03.90 Unspecified dementia, unspecified severity, without behavioral disturbance, psychotic disturbance, mood disturbance, and anxiety
CPT/HCPCS: 36415; 74176; 80048; 80076; 83690; 85025; 96374; 99284; J2060; J7040

== ENCOUNTER 2019-05-25 01:53 | Emergency (ER) | payer MEDICARE ==
[~2019-05-25] VITALS: Ht 170.2 cm; Wt 59.0 kg
[2019-05-25 02:01] VITALS: BP 109/59
[2019-05-25] MEDS ORDERED: LORAZEPAM 1 MG TABLET ONE (02:18)
[2019-05-25] MEDS ORDERED: LORAZEPAM 1 MG TABLET PO ONE (02:30)
== END 2019-05-25 02:26 | disposition home or self-care (01) ==
LOC: ER 01:55
DX: G30.9 Alzheimer's disease, unspecified (principal); F02.80 Dementia in other diseases classified elsewhere, unspecified severity, without behavioral disturbance, psychotic disturbance, mood disturbance, and anxiety; M54.5 Low back pain

== ENCOUNTER 2019-06-02 20:08 | Inpatient (IN) | payer MEDICARE, OTHER ==
[~2019-06-02] VITALS: Ht 180.3 cm; Wt 56.4 kg
--- NOTE | 2019-06-02 20:21 | NUR ---
PT OSCAR C/O: BACK PAIN, NO PAIN ON ARRIVAL, TOLD CALCULUS PROFESSOR IF DIDNT ARRIVE SOON HE WOULD KILL HIMSELFM, IN BED AWAINTING MED EVAL
[2019-06-02 21:15] LABS: BASOPHILS % (AUTO) 0.9 % (0.0-2.0); EOSINOPHILS % (AUTO) 3.3 % (0.0-6.0); HEMATOCRIT 40 % (39-51); HEMOGLOBIN 13.6 g/dL (13.5-17.5); LYMPHOCYTES # (AUTO) 1.2 /CMM (0.8-4.8); LYMPHOCYTES % (AUTO) 26.2 % (20.0-44.0); MEAN CORPUSCULAR HGB CONC 34 g/dl (31.0-36.0); MEAN CORPUSCULAR VOLUME 98 fL (80-96); MONOCYTES # (AUTO) 0.5 /CMM (0.1-1.30); MONOCYTES % (AUTO) 10.2 % (2.0-12.0); NEUTROPHILS # (AUTO) 2.8 /CMM (1.8-8.9); NEUTROPHILS % (AUTO) 59.4 % (43.0-81.0); PLATELET COUNT (AUTO) 116 /CMM (150-450); RED BLOOD CELL COUNT(AUTO) 4.07 MIL/uL (4.5-6.0); WHITE BLOOD COUNT (AUTO) 4.7 K/uL (4.3-11.0)
[2019-06-02] MEDS ORDERED: LORAZEPAM INJ 2 MG/ML VIAL ONE (21:26)
[2019-06-02] MEDS ORDERED: LORAZEPAM INJ 2 MG/ML VIAL IM ONE (21:30)
[2019-06-02 21:32] LABS: ACETAMINOPHEN < 2 ug/ml (10-30); ALANINE AMINOTRANSFERASE 12 U/L (12-78); ALBUMIN 3.7 g/dL (3.4-5.0); ALCOHOL, BLOOD < 3 mg/dL (0-0); ALKALINE PHOSPHATASE 58 U/L (46-116); ASPARTATE AMINOTRANSFERASE 16 U/L (15-37); BILIRUBIN,DIRECT 0.1 mg/dL (0.0-0.2); BILIRUBIN,TOTAL 0.6 mg/dL (0.2-1.0); CALCIUM, SERUM 9.3 mg/dL (8.5-10.1); CARBON DIOXIDE 26 mmol/L (21-32); CHLORIDE 104 mmol/L (98-107); GLUCOSE 100 mg/dL (74-106); POTASSIUM 3.8 mmol/L (3.5-5.1); SALICYLATE 0.9 mg/dL (2.8-20.0); SODIUM SERUM 139 mmol/L (136-145); TOTAL PROTEIN, SERUM 6.9 g/dL (6.4-8.2); UREA NITROGEN, BLOOD 22 mg/dL (7-18)
--- NOTE | 2019-06-02 22:07 | NUR ---
URINE COLLECTED AND SENT TO LAB
[2019-06-02 22:38] LABS: APPEARANCE,URINE Clear (CLEAR); BILIRUBIN,URINE SMALL (NEGATIVE); BLOOD, URINE Trace-intact Ery/uL (NEGATIVE); COLOR,URINE Yellow (YELLOW); KETONES,URINE Trace (NEGATIVE); LEUKOCYTE ESTERASE ,URINE Negative (NEGATIVE); NITRITE, URINE Negative (NEGATIVE); PH,URINE 5.5 (5.0-8.0); PROTEIN,URINE Negative (NEGATIVE); UGLUCOSE Negative (NEGATIVE)
[2019-06-02 22:48] LABS: BACTERIA,URINE Rare /HPF (None Seen); SQUAMOUS EPITHELIAL CELL,UR Few /HPF (None Seen); WBC,URINE NONE SEEN /HPF (0-3)
--- NOTE | 2019-06-02 23:00 | NUR ---
CALLED [facility] ON THE WAY
--- NOTE | 2019-06-03 06:10 | NUR ---
DISCHARGE INSTRUCTIONS GIVEN TO PATIENT, PATIENT VERBALIZED UNDERSTANDING. DISCHARGE PAPER SIGNED BY THE PATIENT. PATIENT'S BELONGINGS ALL ACCOUNTED FOR. PATIENT LEFT THE FACILITY AT THIS TIME, AMBULATORY. Addendum: 06/03/19 at 0726 by TAMIR WRONG DOCUMENTATION.
--- NOTE | 2019-06-03 07:31 | NUR ---
CALLED LEFT CONTACT INFO.
[2019-06-03] MEDS ORDERED: BRIM5DRO2 EACHEYE (07:38)
[2019-06-03 08:00] VITALS: BP 120/71
--- NOTE | 2019-06-03 08:00 | NUR ---
PATIENT LEFT FOR AMARI RUSS, PATIENT IN STABLE CONDITION. REPORT GIVEN TO AUTOMATION TECHNICIAN.
[2019-06-03 08:20] VITALS: BP 120/71
--- NOTE | 2019-06-03 08:20 | NUR ---
LIBRARY AIDE NOTES RECEIVED PATIENT FROM ER ON WHEELCHAIR MALE 84Y/OLD ON GPS 5150 HOLD DX OF PSYCHOSIS NOS, DTO. PATIENT A/O X1, NO ACUTE RESPIRATORY DISTRESS, LUNGS ARE CLEAR DURING AUSCULTATION, UNLABORED. PATIENT CONFUSED, FORGETFUL, DELUSIONAL, KEEP CALLING NAME EDUARDO. PATIENT DRESS UP CLEAN, ASSIST USING BATHROOM. PATIENT NEED MINIMAL ASSIST FOR ADL'S. SKIN ASSESSMENT DONE PICTURE TAKEN. V/S TAKEN BP-120/71, P-76, R-18, T-98, O2-95 ROOM AIR. BELONGING AND CONTRABAND CHECKED. DR ALEMAN AWARE OF NEW PATIENT AND MEDICATION. SAFETY PRECAUTION MAINTAINED ALL THE TIME. CONTINUED MONITORING.
[2019-06-03] MEDS ORDERED: ACETAMINOPHEN 325 MG TABLET PO PRN (10:00)
[2019-06-03] MEDS ORDERED: MAGNESIUM HYDROXIDE 30 ML UDC PO PRN (10:30)
[2019-06-03] MEDS ORDERED: MAG HYDROX/AL HYDROX/SIMETH 30 ML UDC PO PRN (10:30)
[2019-06-03 10:44] LABS: BASOPHILS # (AUTO) 0.1 /CMM (0.0-0.2); BASOPHILS % (AUTO) 1.1 % (0.0-2.0); EOSINOPHILS % (AUTO) 4.1 % (0.0-6.0); HEMATOCRIT 46 % (39-51); HEMOGLOBIN 15.6 g/dL (13.5-17.5); LYMPHOCYTES # (AUTO) 1.2 /CMM (0.8-4.8); LYMPHOCYTES % (AUTO) 25.9 % (20.0-44.0); MEAN CORPUSCULAR HGB CONC 34 g/dl (31.0-36.0); MEAN CORPUSCULAR VOLUME 98 fL (80-96); MONOCYTES # (AUTO) 0.4 /CMM (0.1-1.30); MONOCYTES % (AUTO) 9.5 % (2.0-12.0); NEUTROPHILS # (AUTO) 2.8 /CMM (1.8-8.9); NEUTROPHILS % (AUTO) 59.4 % (43.0-81.0); PLATELET COUNT (AUTO) 138 /CMM (150-450); RED BLOOD CELL COUNT(AUTO) 4.68 MIL/uL (4.5-6.0); WHITE BLOOD COUNT (AUTO) 4.6 K/uL (4.3-11.0)
[2019-06-03 11:08] LABS: ALBUMIN 4.2 g/dL (3.4-5.0); BILIRUBIN,DIRECT 0.2 mg/dL (0.0-0.2); BILIRUBIN,TOTAL 0.5 mg/dL (0.2-1.0); CALCIUM, SERUM 9.5 mg/dL (8.5-10.1); POTASSIUM 3.8 mmol/L (3.5-5.1); TOTAL PROTEIN, SERUM 7.9 g/dL (6.4-8.2)
[2019-06-03] MEDS: QUETIAPINE FUMARATE 25 MG TABLET PO SCH ×2 (11:08→16:04)
[2019-06-03] MEDS: DIVALPROEX SODIUM 125 MG CAP.SPRINK PO SCH ×2 (11:08→20:09)
[2019-06-03] MEDS ORDERED: INFLUENZA VACCINE 2019-20 0.5 ML DISP.SYRIN IM ONE ×2 (12:30→15:00)
[2019-06-03 16:00] VITALS: BP 127/69
[2019-06-03] MEDS: TIMOLOL 0.5% SOLN OPHTH 5 ML BOTTLE EACHEYE SCH (18:04)
[2019-06-03] MEDS: BRIMONIDINE TARTRATE OPHT SOLN 5 ML BOTTLE EACHEYE SCH (18:04)
[2019-06-03 20:00] VITALS: BP 115/65
[2019-06-03 20:20] VITALS: BP 115/65
[2019-06-03] MEDS: LATANOPROST EYE DROP 0.005% 2.5 ML BOTTLE EACHEYE SCH (21:15)
[2019-06-03] MEDS: TEMAZEPAM 7.5 MG CAPSULE PO PRN (23:54)
--- NOTE | 2019-06-03 23:54 | NUR ---
GPS RN notes Administered Restoril 7.5 mg/1 tab/PO as ordered for sleeping. Pt unable to sleep. VS is stable. Instructed to call. Safety precautions is maintained. Will continue to monitor.
[2019-06-04 07:38] LABS: CHOLESTEROL 179 mg/dL (<200); HDL CHOLESTEROL 61 mg/dL (40-60); LDL 101 mg/dL (0-99); TRIGLYCERIDES 84 mg/dL (30-150)
[2019-06-04 07:50] LABS: BASOPHILS % (AUTO) 0.6 % (0.0-2.0); EOSINOPHILS % (AUTO) 5.1 % (0.0-6.0); HEMATOCRIT 44 % (39-51); HEMOGLOBIN 14.7 g/dL (13.5-17.5); LYMPHOCYTES # (AUTO) 1.2 /CMM (0.8-4.8); LYMPHOCYTES % (AUTO) 23.8 % (20.0-44.0); MEAN CORPUSCULAR HGB CONC 34 g/dl (31.0-36.0); MEAN CORPUSCULAR VOLUME 97 fL (80-96); MONOCYTES # (AUTO) 0.4 /CMM (0.1-1.30); MONOCYTES % (AUTO) 8.3 % (2.0-12.0); NEUTROPHILS # (AUTO) 3.1 /CMM (1.8-8.9); NEUTROPHILS % (AUTO) 62.2 % (43.0-81.0); PLATELET COUNT (AUTO) 128 /CMM (150-450); RED BLOOD CELL COUNT(AUTO) 4.49 MIL/uL (4.5-6.0)
[2019-06-04 07:54] LABS: ALBUMIN 3.8 g/dL (3.4-5.0); BILIRUBIN,TOTAL 0.7 mg/dL (0.2-1.0); CALCIUM, SERUM 9.1 mg/dL (8.5-10.1); POTASSIUM 3.9 mmol/L (3.5-5.1); TOTAL PROTEIN, SERUM 7.3 g/dL (6.4-8.2)
[2019-06-04 08:00] VITALS: BP 144/64
[2019-06-04] MEDS: DIVALPROEX SODIUM 125 MG CAP.SPRINK PO SCH ×2 (08:15→21:21)
[2019-06-04] MEDS: QUETIAPINE FUMARATE 25 MG TABLET PO SCH ×2 (08:16→17:20)
[2019-06-04] MEDS: TIMOLOL 0.5% SOLN OPHTH 5 ML BOTTLE EACHEYE SCH ×2 (08:17→17:22)
[2019-06-04] MEDS: BRIMONIDINE TARTRATE OPHT SOLN 5 ML BOTTLE EACHEYE SCH ×2 (08:17→17:22)
--- NOTE | 2019-06-04 08:48 | NUR ---
JANAK contacted Pts Jodie [phone] who stated that she is currently waiting on a Probate conservatorship hearing through [employer] and stated that it make take up to a month to get it scheduled. JANAK explained that pts HMO insurance is strict and will not authorize too many days. stated that she is aware and stated that she will take him back home to [address] [place] [id number] once HMO insurance no longer covers pts hospitalization.
--- NOTE | 2019-06-04 09:12 | NUR ---
UR NOTE: JANAK contacted Kaylah, case finisher at [facility] [phone] and left clinical review via voicemail.
--- NOTE | 2019-06-04 15:00 | NUR ---
GROUP NOTE: SW encouraged pt to participate in group therapy on this present day discussing "discharge planning." Pt is unable to participate in group therapy due to pts cognitive impairment and history of Dementia.
--- NOTE | 2019-06-04 15:57 | NUR ---
INITIAL DISCHARGE NOTE: Per Jodie [phone] pt will return to his home [address] [facility] [address]. SW will help form a safe and proper discharge in collaboration with .
[2019-06-04 16:18] VITALS: BP 126/61
[2019-06-04] MEDS: ENSURE ENLIVE 237 ML LIQUID (VANILLA) PO SCH (17:41)
[2019-06-04] MEDS: LORAZEPAM 0.5 MG TABLET PO PRN (19:54)
[2019-06-04 21:06] VITALS: BP 102/54
[2019-06-04] MEDS: TEMAZEPAM 7.5 MG CAPSULE PO PRN (21:21)
[2019-06-04] MEDS: LATANOPROST EYE DROP 0.005% 2.5 ML BOTTLE EACHEYE SCH (22:06)
[2019-06-05 08:00] VITALS: BP 100/61
[2019-06-05] MEDS: DIVALPROEX SODIUM 125 MG CAP.SPRINK PO SCH ×2 (08:53→20:45)
[2019-06-05] MEDS: ENSURE ENLIVE 237 ML LIQUID (VANILLA) PO SCH ×3 (08:54→17:10)
[2019-06-05] MEDS: QUETIAPINE FUMARATE 25 MG TABLET PO SCH ×2 (08:54→17:09)
[2019-06-05] MEDS: BRIMONIDINE TARTRATE OPHT SOLN 5 ML BOTTLE EACHEYE SCH ×2 (08:56→17:10)
[2019-06-05] MEDS: TIMOLOL 0.5% SOLN OPHTH 5 ML BOTTLE EACHEYE SCH ×2 (08:56→17:09)
[2019-06-05] MEDS: LORAZEPAM 0.5 MG TABLET PO PRN ×2 (15:10→20:14)
--- NOTE | 2019-06-05 15:11 | NUR ---
GPS/RN-NOTES PATIENT VERY ANXIOUS WITH AGGRESSIVE BEHAVIOR PUSHING STAFF IN THE NURSE STATION . REDIRECTED AND REORIENTED PATIENT. ATIVAN 0.5MG P.O GIVEN PRN ORDER. WILL CONT. MONITORING FOR SAFETY AND BEHAVIOR.
[2019-06-05 16:00] VITALS: BP 149/74
--- NOTE | 2019-06-05 16:10 | NUR ---
GPS/RN-NOTES PATIENT IN THE DAY ROOM SITTING IN THE CHAIR CALM ,NO ACUTE DISTRESS NOTED.
[2019-06-05 20:03] LABS: APPEARANCE,URINE Clear (CLEAR); BILIRUBIN,URINE Negative (NEGATIVE); BLOOD, URINE Negative Ery/uL (NEGATIVE); COLOR,URINE Yellow (YELLOW); KETONES,URINE Negative (NEGATIVE); LEUKOCYTE ESTERASE ,URINE Trace (NEGATIVE); NITRITE, URINE Negative (NEGATIVE); PH,URINE 5.5 (5.0-8.0); PROTEIN,URINE Negative (NEGATIVE); UGLUCOSE Negative (NEGATIVE); UROBILINOGEN,URINE 0.2 EU/dL (0.2)
[2019-06-05 20:25] VITALS: BP 104/69
[2019-06-05 20:33] LABS: BACTERIA,URINE Few /HPF (None Seen); RBC,URINE NONE SEEN /HPF (0-2); SQUAMOUS EPITHELIAL CELL,UR Few /HPF (None Seen); WBC,URINE 0-2 /HPF (0-3)
[2019-06-05] MEDS: TEMAZEPAM 7.5 MG CAPSULE PO PRN (20:45)
[2019-06-05] MEDS: LATANOPROST EYE DROP 0.005% 2.5 ML BOTTLE EACHEYE SCH (20:45)
[2019-06-06 08:00] VITALS: BP 123/74
[2019-06-06] MEDS: QUETIAPINE FUMARATE 25 MG TABLET PO SCH ×2 (08:18→17:00)
[2019-06-06] MEDS: DIVALPROEX SODIUM 125 MG CAP.SPRINK PO SCH ×2 (08:18→21:26)
[2019-06-06] MEDS: BRIMONIDINE TARTRATE OPHT SOLN 5 ML BOTTLE EACHEYE SCH ×2 (08:18→17:07)
[2019-06-06] MEDS: TIMOLOL 0.5% SOLN OPHTH 5 ML BOTTLE EACHEYE SCH ×2 (08:19→17:07)
[2019-06-06] MEDS: ENSURE ENLIVE 237 ML LIQUID (VANILLA) PO SCH ×3 (08:26→17:08)
--- NOTE | 2019-06-06 12:51 | NUR ---
UR NOTE: per intake department: AUTH: [id number] APPROVAL DAYS: 06/06-06/07 CASE MANGER: LANDON [phone] [id number] REVIEW DUE TOMORROW
--- NOTE | 2019-06-06 15:55 | NUR ---
Group Note: SW encouraged pt to participate in group therapy on 06/06/19 at 2pm discussing the topic of depression. Pt is unable to participate in group due to his cognitive impairment and his diagnosis of Dementia. Pt was observed to be shouting for his "Jodie" and was disruptive to the environment.
[2019-06-06 16:00] VITALS: BP 128/57
[2019-06-06 20:36] VITALS: BP 90/51
[2019-06-06] MEDS: LATANOPROST EYE DROP 0.005% 2.5 ML BOTTLE EACHEYE SCH (21:26)
[2019-06-06] MEDS: TEMAZEPAM 7.5 MG CAPSULE PO PRN (21:26)
[2019-06-06 21:30] VITALS: BP 102/57
[2019-06-06] MEDS: LORAZEPAM 0.5 MG TABLET PO PRN (23:56)
--- NOTE | 2019-06-07 08:32 | NUR ---
UR NOTE: JANAK left clinical review via voicemail with CASE MANGER: LANDON [phone] [id number].
[2019-06-07 08:47] VITALS: BP 108/53
[2019-06-07] MEDS: BRIMONIDINE TARTRATE OPHT SOLN 5 ML BOTTLE EACHEYE SCH ×2 (09:00→16:54)
[2019-06-07] MEDS: TIMOLOL 0.5% SOLN OPHTH 5 ML BOTTLE EACHEYE SCH ×2 (09:00→16:54)
[2019-06-07] MEDS: ENSURE ENLIVE 237 ML LIQUID (VANILLA) PO SCH ×3 (09:32→17:01)
[2019-06-07] MEDS: QUETIAPINE FUMARATE 25 MG TABLET PO SCH ×2 (09:32→16:53)
[2019-06-07] MEDS: DIVALPROEX SODIUM 125 MG CAP.SPRINK PO SCH ×2 (09:32→21:31)
--- NOTE | 2019-06-07 14:48 | NUR ---
UR NOTE: JANAK received a call from [facility] CASE MANGER: SAMMIE [phone] [id number] stating she is unable to approve additional days as pt does not meet criteria clinically and will be sending case to peer to peer review. JANAK provided her with Dr. Quispe's contact information to schedule peer to peer. Sammie stated she would be calling to provide her with an update after peer to peer is completed.
[2019-06-07 16:00] VITALS: BP 114/64
--- NOTE | 2019-06-07 19:30 | NUR ---
RN INITIAL NOTES: RECEIVED REPORT FROM JOANNA ALMAZAN. PT IN BED, AWAKE, A/O X1, CONFUSED, APPEARS CALM AT THIS TIME. PT IS INCONTINENT, PER REPORT PT BEEN WEAK AND NEEDS MAX ASSIST WHEN GETING UP IN BED. HIGH FALL RISK. PO PILLS NEEDS TO BE CRUSHED WITH APPLE SAUCE OR PUDDING. ON ASPIRATION PRECAUTIONS DURING MEALS. SAFETY PRECAUTIONS FOR FALL INITIATED, SIDE RAILS UP X3 FOR SAFETY, WILL CONTINUE MONITORING PT [id number] FOR SAFETY AND ANY CHANGES IN BEHAVIOR.
[2019-06-07 20:00] VITALS: BP 101/50
[2019-06-07 20:03] VITALS: BP 101/50
[2019-06-07] MEDS: LATANOPROST EYE DROP 0.005% 2.5 ML BOTTLE EACHEYE SCH (21:32)
--- NOTE | 2019-06-08 06:25 | NUR ---
RN NOTES: PT REFUSED FOR BLOOD DRAW. INVENTORY COORDINATOR AWARE
[2019-06-08 08:00] VITALS: BP 120/61
[2019-06-08] MEDS: QUETIAPINE FUMARATE 25 MG TABLET PO SCH (08:10)
[2019-06-08] MEDS: DIVALPROEX SODIUM 125 MG CAP.SPRINK PO SCH (08:10)
[2019-06-08] MEDS: BRIMONIDINE TARTRATE OPHT SOLN 5 ML BOTTLE EACHEYE SCH (08:30)
[2019-06-08] MEDS: TIMOLOL 0.5% SOLN OPHTH 5 ML BOTTLE EACHEYE SCH (08:30)
[2019-06-08] MEDS: ENSURE ENLIVE 237 ML LIQUID (VANILLA) PO SCH ×2 (08:31→12:05)
[2019-06-08 08:52] VITALS: BP 120/61
--- NOTE | 2019-06-08 09:08 | NUR ---
DR. GOFF GAVE AN ORDER TO D/C HOLD AND D/C HOME AND TO FOLLOW UP WITH PSYCH AND MEDICAL DOCTORS. Addendum: 06/08/19 at 1034 by MAX AMAYA RN PT. WITHOUT DISTRESS, DENIES SUICIDAL AND HOMICIDAL. JOHN WILL COME TO PICK HIM UP AND TRANSPORTING HOME.
--- NOTE | 2019-06-08 10:36 | NUR ---
DISCHARGE NOTE: Pt will be discharged at 5:00pm via private vehicle home to [address] [place] [address]. Pts Jodie [phone] will be picking pt up and transporting home. Pts mood is euthymic/confused with congruent affect. Pt denied visual/auditory hallucinations and denied suicidal/homicidal ideation. Pt will follow up at [facility] Address: [address] [place] [address] on Wednesday June 12, 2019 and will present at 9:00am for an intake. SW faxed clinical information to [facility] Address: [address] [place] [address] . Pt will also follow up with Garment Steamer: Dr. Ross Arcos Address: [address], [place] [address] . The multidisciplinary exit care form was done, printed, signed, and given to the patient.
[2019-06-08] MEDS: LORAZEPAM 0.5 MG TABLET PO PRN (12:07)
[2019-06-08 16:00] VITALS: BP 114/81
--- NOTE | 2019-06-08 16:32 | NUR ---
GPS NOTE THE PATIENT IS ALERT AND ORIENTED TO SELF. DENIES PAIN. RESPIRATION REGULAR AND UNLABORED. DENIES SOB. THE PATIENT IN STABLE CONDITION. DENIES SI/HI AND DENIES VISUAL/AUDITORY HALLUCINATIONS. THE PATIENT IS PICKED UP BY JOHN ON A PRIVATE CAR GOING TO HOME. THE PATIENT LEFT THE HOSPITAL IN STABLE CONDITION.
--- NOTE | 2019-06-11 08:57 | NUR ---
UR NOTE: SW left discharge clinical via voicemail with CASE MANGER: LANDON [phone] [id number].
== END 2019-06-08 16:33 | disposition home or self-care (01) | DRG 885 ==
LOC: ER 20:09 → GPS 06-03 07:46
PROVIDERS: ADMIT Psychiatry & Neurology Psychiatry; ATTEND Hospitalist
DX: F29 Unspecified psychosis not due to a substance or known physiological condition (principal); Z68.1 Body mass index [BMI] 19.9 or less, adult; R64 Cachexia; E44.1 Mild protein-calorie malnutrition; F02.81 Dementia in other diseases classified elsewhere, unspecified severity, with behavioral disturbance; G30.9 Alzheimer's disease, unspecified; H40.9 Unspecified glaucoma
CPT/HCPCS: 36415; 80048-TC; 80053-TC; 80061-TC; 80076-TC; 80164-TC; 80305; 81000-TC; 82962-TC; 85025-TC; 87081-TC; 97116-TC; 97530-TC; G0480; J2060; Q2036

== ENCOUNTER 2019-06-24 02:07 | Emergency (ER) | payer OTHER ==
[~2019-06-24] VITALS: Ht 170.2 cm; Wt 58.5 kg
[~2019-06-24 02:07] MED LIST changes: +BRIM5DRO2 EACHEYE; -BRIM5DRO3 EACHEYE; -DIVA250T4 PO; -QUET25TA PO; -SULF1TAB48 PO; -TIMO5DRO18 EACHEYE
[2019-06-24 02:22] VITALS: BP 105/50
== END 2019-06-24 03:13 | disposition home or self-care (01) ==
LOC: ER 02:09
DX: M65.4 Radial styloid tenosynovitis [de Quervain] (principal); F03.90 Unspecified dementia, unspecified severity, without behavioral disturbance, psychotic disturbance, mood disturbance, and anxiety; F20.9 Schizophrenia, unspecified; Z79.899 Other long term (current) drug therapy

== ENCOUNTER 2019-07-08 08:29 | Inpatient (IN) | payer OTHER ==
[~2019-07-08] VITALS: Ht 162.6 cm; Wt 60.3 kg
[2019-07-08 09:10] LABS: BASOPHILS % (AUTO) 0.8 % (0.0-2.0); EOSINOPHILS % (AUTO) 4.2 % (0.0-6.0); HEMATOCRIT 45 % (39-51); HEMOGLOBIN 14.6 g/dL (13.5-17.5); LYMPHOCYTES # (AUTO) 1.1 /CMM (0.8-4.8); LYMPHOCYTES % (AUTO) 21.9 % (20.0-44.0); MEAN CORPUSCULAR HGB CONC 33 g/dl (31.0-36.0); MEAN CORPUSCULAR VOLUME 102 fL (80-96); MONOCYTES # (AUTO) 0.5 /CMM (0.1-1.30); MONOCYTES % (AUTO) 9.8 % (2.0-12.0); NEUTROPHILS # (AUTO) 3.3 /CMM (1.8-8.9); NEUTROPHILS % (AUTO) 63.3 % (43.0-81.0); PLATELET COUNT (AUTO) 156 /CMM (150-450); RED BLOOD CELL COUNT(AUTO) 4.41 MIL/uL (4.5-6.0); WHITE BLOOD COUNT (AUTO) 5.2 K/uL (4.3-11.0)
[2019-07-08 09:22] LABS: CALCIUM, SERUM 9.7 mg/dL (8.5-10.1); CARBON DIOXIDE 27 mmol/L (21-32); CHLORIDE 107 mmol/L (98-107); GLUCOSE 86 mg/dL (74-106); POTASSIUM 4.7 mmol/L (3.5-5.1); SODIUM SERUM 142 mmol/L (136-145); UREA NITROGEN, BLOOD 22 mg/dL (7-18)
[2019-07-08 09:28] LABS: ACETAMINOPHEN 0 ug/ml (10-30); ALANINE AMINOTRANSFERASE 16 U/L (12-78); ALKALINE PHOSPHATASE 68 U/L (46-116); ASPARTATE AMINOTRANSFERASE 19 U/L (15-37); BILIRUBIN,DIRECT 0.1 mg/dL (0.0-0.2); BILIRUBIN,TOTAL 0.4 mg/dL (0.2-1.0); SALICYLATE 1.6 mg/dL (2.8-20.0); TOTAL PROTEIN, SERUM 7.3 g/dL (6.4-8.2)
[2019-07-08 09:29] LABS: ALCOHOL, BLOOD < 3 mg/dL (0-0)
--- NOTE | 2019-07-08 09:31 | NUR ---
Patient alert to name only keep calling his ,sialis @ bedside 4641 check room for saferty ,fall precaution continue to monitor
[2019-07-08 09:54] LABS: APPEARANCE,URINE Clear (CLEAR); BILIRUBIN,URINE Negative (NEGATIVE); BLOOD, URINE Negative Ery/uL (NEGATIVE); COLOR,URINE Yellow (YELLOW); KETONES,URINE Negative (NEGATIVE); LEUKOCYTE ESTERASE ,URINE Negative (NEGATIVE); NITRITE, URINE Negative (NEGATIVE); PH,URINE 5.5 (5.0-8.0); PROTEIN,URINE Negative (NEGATIVE); UGLUCOSE Negative (NEGATIVE); UROBILINOGEN,URINE 0.2 EU/dL (0.2)
[2019-07-08] MEDS ORDERED: OLANZAPINE 10 MG VIAL IM ONE ×2 (10:00→10:16)
[2019-07-08] MEDS ORDERED: OLANZAPINE 5 MG TABLET ONE (10:06)
--- NOTE | 2019-07-08 11:19 | NUR ---
HOSPICE AIDE/MED RECON UNABLE TO UPDATE HOME MEDICATION INFO AT THIS TIME, PATIENT UNABLE TO PROVIDE ANY INFO. CALLED WITH NUMBER NOTED IN CHART WITH NO ANSWER AND UNABLE TO LEAVE A MSG.
--- NOTE | 2019-07-08 11:27 | NUR ---
NORAH SUP GAVE BED 215 A
--- NOTE | 2019-07-08 11:30 | NUR ---
Patient awake alert to name remain sitter @ bedside patient keep calleing jeannette his ,patient reorrient to self and environment ,noted no learning ,patient able to ambulated to bathroom with sitter remain [phone]
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
--- NOTE | 2019-07-08 13:05 | NUR ---
[facility] care report to David floor
[2019-07-08] MEDS ORDERED: MAG HYDROX/AL HYDROX/SIMETH 30 ML UDC PO PRN (14:30)
[2019-07-08] MEDS ORDERED: ACETAMINOPHEN 325 MG TABLET PO PRN (14:30)
[2019-07-08] MEDS ORDERED: MAGNESIUM HYDROXIDE 30 ML UDC PO PRN (14:30)
[2019-07-08] MEDS ORDERED: BLOOD SUGAR DIAGNOSTIC 1 EACH STRIP IN ONE (14:30)
[2019-07-08 15:03] VITALS: BP 132/78
[2019-07-08 16:00] VITALS: BP 128/74
[2019-07-08] MEDS: LORAZEPAM 0.5 MG TABLET PO PRN (16:34)
--- NOTE | 2019-07-08 16:35 | NUR ---
RN NOTE: MEDICATED PT WITH ATIVAN 0.5MG FOR ANXIETY.
[2019-07-08] MEDS: BRIMONIDINE TARTRATE OPHT SOLN 5 ML BOTTLE EACHEYE SCH (16:40)
[2019-07-08] MEDS: TIMOLOL 0.25% SOL OPHTH 10 ML BOTTLE EACHEYE SCH (16:41)
[2019-07-08] MEDS: LATANOPROST EYE DROP 0.005% 2.5 ML BOTTLE EACHEYE SCH (21:26)
[2019-07-08] MEDS: TEMAZEPAM 7.5 MG CAPSULE PO PRN (21:35)
[2019-07-09] MEDS: LORAZEPAM 0.5 MG TABLET PO PRN ×2 (02:09→10:48)
[2019-07-09 08:00] VITALS: BP 148/69
[2019-07-09 08:06] LABS: ALBUMIN 4.1 g/dL (3.4-5.0); BILIRUBIN,TOTAL 0.7 mg/dL (0.2-1.0); CALCIUM, SERUM 9.4 mg/dL (8.5-10.1); CREATININE 0.9 mg/dL (0.6-1.3); POTASSIUM 3.9 mmol/L (3.5-5.1); TOTAL PROTEIN, SERUM 7.6 g/dL (6.4-8.2)
[2019-07-09 08:16] LABS: CHOLESTEROL 201 mg/dL (<200); HDL CHOLESTEROL 74 mg/dL (40-60); LDL 110 mg/dL (0-99); TRIGLYCERIDES 48 mg/dL (30-150)
[2019-07-09] MEDS: BRIMONIDINE TARTRATE OPHT SOLN 5 ML BOTTLE EACHEYE SCH ×2 (08:25→17:44)
[2019-07-09] MEDS: TIMOLOL 0.25% SOL OPHTH 10 ML BOTTLE EACHEYE SCH ×2 (08:25→17:43)
[2019-07-09] MEDS: QUETIAPINE FUMARATE 25 MG TABLET PO SCH ×3 (08:26→21:18)
[2019-07-09] MEDS: TAMSULOSIN 0.4 MG CAP.SR.24H PO SCH (08:26)
[2019-07-09] MEDS: DIVALPROEX SODIUM 250 MG TABLET.DR PO SCH ×3 (08:26→21:18)
--- NOTE | 2019-07-09 10:48 | NUR ---
RN NOTE- AGITATION PRESENT. ATIVAN PRN GIVEN.
--- NOTE | 2019-07-09 10:54 | NUR ---
FAMILY CONTACT: JANAK contacted pts Jodie [phone] and left her a voicemail for callback.
--- NOTE | 2019-07-09 14:58 | NUR ---
FAMILY CONTACT: SW received a call from pts Jodie [phone] who stated she is no longer able to care for pt at home and requested SNF placement. SW explained that due to pts limited resources SW is unable to place pt at a SNF or an assisted living facility. SW explained that pts current HMO insurance will not authorize SNF placement as pts diagnosis of Dementia does not meet criteria for SNF placement. SW educated on disenrollment pt from HMO and enrolling pt in [facility] Medicare. stated that pt is uncontrollable at home and that he refuses to take medication and go to the doctor. She also mentioned that she is currently waiting for a hearing from [facility] so that she is granted conservatorship so she can manage pts finances and healthcare decisions. requested SW contact Deputy Yudith Winters from [facility] Public Guardian's Office [phone] to inquire on hearing date. stated the once pt is stable she will pick him up and transport home.
--- NOTE | 2019-07-09 15:08 | NUR ---
PUBLIC GUARDIANS OFFICE: SW contact Jolietlatasha Winters from [facility] Public Guardian's Office [phone] to inquire on conservatorship hearing date. JANAK left voicemail for callback.
--- NOTE | 2019-07-09 15:41 | NUR ---
INITIAL DISCHARGE PLAN: Per Jodie [phone] pt will return to his home [address] [facility] [address]. SW will help form a safe and proper discharge in collaboration with .
[2019-07-09 16:00] VITALS: BP 117/62
[2019-07-09 20:57] VITALS: BP 93/67
[2019-07-09] MEDS: LATANOPROST EYE DROP 0.005% 2.5 ML BOTTLE EACHEYE SCH (21:19)
[2019-07-09 23:00] VITALS: BP 105/63
[2019-07-10 08:00] VITALS: BP 103/50
--- NOTE | 2019-07-10 08:59 | NUR ---
UR NOTE: JANAK contacted Abdoulaye Cronin [phone] and left clinical review via voicemail.
[2019-07-10] MEDS: TAMSULOSIN 0.4 MG CAP.SR.24H PO SCH (09:22)
[2019-07-10] MEDS: BRIMONIDINE TARTRATE OPHT SOLN 5 ML BOTTLE EACHEYE SCH ×2 (09:22→17:10)
[2019-07-10] MEDS: TIMOLOL 0.25% SOL OPHTH 10 ML BOTTLE EACHEYE SCH ×2 (09:22→17:10)
[2019-07-10] MEDS: DIVALPROEX SODIUM 250 MG TABLET.DR PO SCH ×3 (09:23→20:38)
[2019-07-10] MEDS: QUETIAPINE FUMARATE 25 MG TABLET PO SCH ×3 (09:23→21:02)
[2019-07-10] MEDS: LORAZEPAM 0.5 MG TABLET PO PRN (12:21)
--- NOTE | 2019-07-10 12:21 | NUR ---
RN NOTE- PT W AGITATION. PRN ATIVAN GIVEN.
--- NOTE | 2019-07-10 13:59 | NUR ---
UR NOTE: JANAK received a call from Abdoulaye Cronin [phone] [phone] stating pt has been authorized 2 additional days 07/11/19 and 07/12/19 with review due on 07/12/19.
--- NOTE | 2019-07-10 14:00 | NUR ---
FAMILY CONTACT: JANAK contacted pts Jodie [phone] and left a voicemail informing her pt was authorized 2 additional days 07/11/19-07/12/19. JANAK also provided her with a referral for probate conservatorship ([facility] Address: [address], [place] [address] ) and provided her with a referral to the [facility] [place] Address: [address] [place] [address] [address], [place] [address] for caregiver resources and assistance with health plans.
--- NOTE | 2019-07-10 14:14 | NUR ---
SNF REFERRAL: JANAK faxed SNF referral to Jeanie esthetician/spa coordinator at [facility] [place] Address: [address], [place] [address] for review.
[2019-07-10 16:00] VITALS: BP 108/60
--- NOTE | 2019-07-10 16:00 | NUR ---
SNF: SW received a call from Jeanie spa coordinator at [facility] Address: [address] [facility], [place] [address] stating the facility is not contracted with [facility] therefore they cannot accept the patient.
[2019-07-10 20:08] VITALS: BP 103/65
[2019-07-10] MEDS: LATANOPROST EYE DROP 0.005% 2.5 ML BOTTLE EACHEYE SCH (21:02)
[2019-07-10] MEDS: TEMAZEPAM 7.5 MG CAPSULE PO PRN (22:00)
[2019-07-11 08:00] VITALS: BP 142/66
[2019-07-11] MEDS: DIVALPROEX SODIUM 250 MG TABLET.DR PO SCH ×3 (09:14→20:49)
[2019-07-11] MEDS: QUETIAPINE FUMARATE 25 MG TABLET PO SCH ×3 (09:14→20:49)
[2019-07-11] MEDS: TAMSULOSIN 0.4 MG CAP.SR.24H PO SCH (09:14)
[2019-07-11] MEDS: TIMOLOL 0.25% SOL OPHTH 10 ML BOTTLE EACHEYE SCH ×2 (09:18→17:02)
[2019-07-11] MEDS: BRIMONIDINE TARTRATE OPHT SOLN 5 ML BOTTLE EACHEYE SCH ×2 (09:18→17:02)
--- NOTE | 2019-07-11 10:11 | NUR ---
SNF REFERRAL: JANAK faxed SNF referrals to [facility] Address: [address] [place] [address] , and [facility] Address: [address] [place] [address] for review.
--- NOTE | 2019-07-11 14:53 | NUR ---
PUBLIC GUARDIANS OFFICE: SW received a call from Deputy Yudith Winters from [facility] Public Guardian's Office [phone] who provided SW with information regarding pts current case. Per Yudith she stated that wishes for the Public Guardian's Office to have conservatorship over pt as she no longer wants to care for him as she is unable to due to his aggressive and unmanageable behavior and has filed a petition for conservatorship. Yudith stated that pt has a scheduled hearing on August 10, 2019.
--- NOTE | 2019-07-11 15:21 | NUR ---
FAMILY CONTACT: SW contacted pts Jodie [phone] and informed her SW received a call from Deputy Yudith Winters from [facility] Public Guardian's Office [phone] who informed her pt has a scheduled hearing on 08/10/19. Jodie stated that she received a letter on this present day with that information. Jodie also stated that she has an appointment with [facility] Solar [employer] Installation Crew Member Address: [address] [place] [address] [address], [place] [address] to receive advisement on probate conservatorship.
[2019-07-11 16:00] VITALS: BP 110/67
[2019-07-11] MEDS: LORAZEPAM 0.5 MG TABLET PO PRN (17:31)
[2019-07-11 20:18] VITALS: BP 113/66
[2019-07-11] MEDS: TEMAZEPAM 7.5 MG CAPSULE PO PRN (20:49)
[2019-07-11] MEDS: LATANOPROST EYE DROP 0.005% 2.5 ML BOTTLE EACHEYE SCH (20:49)
--- NOTE | 2019-07-12 00:03 | NUR ---
BLENDER MACHINE OPERATOR NOTES PT CHECKED SLEEPING COMFORTABLY IN BED AFTER SLEEP MEDICATION AND GIVEN SHOWER. KEPT HIM WARM AND COMFORTABLE AT ALL TIMES. NO SIGNS OF ANY ACUTE DISTRESS NOTED. WILL CONTINUE MONITORING Q 15 MINUTES FOR SAFETY.
--- NOTE | 2019-07-12 06:55 | NUR ---
access services librarian notes pt woke and started to getting up , confused looking for his . morning care done with the helped of 2 dowel pin worker , put him to josep chair for safety and kept him warm and comfortable at all times. Endorse to am nurse for continuity of care.
--- NOTE | 2019-07-12 07:34 | NUR ---
rn notes pt sleeping in bed, easily arousable. no signs of any distress. safety ensured. will monitor
[2019-07-12 08:00] VITALS: BP 116/57
[2019-07-12] MEDS: TAMSULOSIN 0.4 MG CAP.SR.24H PO SCH ×2 (09:00→10:19)
[2019-07-12] MEDS: BRIMONIDINE TARTRATE OPHT SOLN 5 ML BOTTLE EACHEYE SCH ×4 (09:00→17:00)
[2019-07-12] MEDS: LORAZEPAM 0.5 MG TABLET PO PRN (10:19)
[2019-07-12] MEDS: DIVALPROEX SODIUM 250 MG TABLET.DR PO SCH ×3 (10:19→21:43)
[2019-07-12] MEDS: QUETIAPINE FUMARATE 25 MG TABLET PO SCH ×3 (10:20→21:44)
[2019-07-12] MEDS: TIMOLOL 0.25% SOL OPHTH 10 ML BOTTLE EACHEYE SCH ×3 (10:22→18:51)
--- NOTE | 2019-07-12 11:01 | NUR ---
UR NOTE: SW contacted cyanide case hardener, Abdoulaye Cronin ([phone]), and left clinical review via voicemail requesting additional authorization.
--- NOTE | 2019-07-12 12:57 | NUR ---
UR NOTE: Mine ([phone]) from Peer Review called the SW and stated that the pt will have a peer to peer review on 07/13/[address] Candelaria and Dr Quispe. Addendum: 07/12/19 at [address] Candelaria ([phone])
--- NOTE | 2019-07-12 14:46 | NUR ---
SS Group Note: Goal: Patient will attend group held today from 1:00pm-3:00pm in the activities room and participate and/or actively listen to peers and be respectful. Intervention: SW facilitated group session with patients regarding Sensory activity for the holidays. SW explored what tastes, smells, sounds, and sights come to mind when thinking about the holiday season and gratefulness. Response: Patient was agreeable to participating in group session. The patient presented withdrawn with a flat affect and mood congruency. Pt. was unable to verbalize his thoughts with the group however, pt. was able to sit in and respectfully listen to his peers. Plan: Patient will be invited to attend next social service assistant group session held.
[2019-07-12 16:00] VITALS: BP 115/63
--- NOTE | 2019-07-12 16:12 | NUR ---
FAMILY CONTACT: JANAK contacted pts Jodie [phone] and informed her that the pt will be discharged tomorrow and she stated that she will arrive at 9pm.
--- NOTE | 2019-07-12 18:45 | NUR ---
RN NOTES PT UP IN THE GERICHAIR WITH PERIODS OF AGITATION, WITH CONFUSION AND WITH DIFFICULTY TO BE REDIRECTED. SOME MEDS REFUSED. SAFETY ENSURED AT ALL TIMES. NO SOB NOTED. WILL ENDORSE TO NEXT SHIFT RN FOR CONTINUITY OF CARE IN STABLE CONDITION
[2019-07-12 21:43] VITALS: BP 140/98
[2019-07-12] MEDS: LATANOPROST EYE DROP 0.005% 2.5 ML BOTTLE EACHEYE SCH (21:53)
[2019-07-12] MEDS: TEMAZEPAM 7.5 MG CAPSULE PO PRN (22:36)
[2019-07-13 08:00] VITALS: BP 112/56
[2019-07-13] MEDS: DIVALPROEX SODIUM 250 MG TABLET.DR PO SCH ×4 (09:00→21:00)
[2019-07-13] MEDS: QUETIAPINE FUMARATE 25 MG TABLET PO SCH ×4 (09:00→21:59)
[2019-07-13] MEDS: TAMSULOSIN 0.4 MG CAP.SR.24H PO SCH ×2 (09:00→13:02)
--- NOTE | 2019-07-13 10:03 | NUR ---
GPS RN NOTE: PATIENT EXCESSIVELY SLEEPY. REPORTEDLY SLEPT FOR 2 HOURS LAST NIGHT. UNABLE AND UNWILLING TO TAKE AM MEDS. Addendum: 07/13/19 at 1304 by ELEAZAR VELASCO RN SUCCESSFUL ADMINISTRATION AT 1300 WITH AM MEDS. 1300 DEPAKOTE HELD TO CLOSE IN ADMINISTRATION TO AM DOSE Addendum: 07/13/19 at 1645 by ELEAZAR VELASCO RN PATIENT REFUSED PM SEROQUEL AND EYE DROP ADMINISTRATION AFTER MULTIPLE ATTEMPTS PATIENT CONTINUES TO REFUSE AND IS BECOMING AGGRESSIVE.
--- NOTE | 2019-07-13 12:10 | NUR ---
Fiduciary Contact: SW received a call from Reagan Stewart ([phone]), who stated that he is assisting the pts and does not recommend that the pt be discharged back to his home with her due to their conditions. He stated that he will be consulting with her to appeal the discharge.
--- NOTE | 2019-07-13 13:26 | NUR ---
Family Contact: Pts , Jodie ([phone] ), called the SW and stated that she is refusing to pick the pt up because her home is in no condition for the both of them to live in yet alone herself. SW stated that she would give her a call back once she consults her respiratory supervisor.
--- NOTE | 2019-07-13 13:30 | NUR ---
Family Contact: SW called the pts , Jodie ([phone]), and informed her that she would have to call Rik ([phone]), to appeal the discharge. She stated that she would call as soon as possible and then get back to the SW regarding the results.
--- NOTE | 2019-07-13 13:35 | NUR ---
Family Contact: Pts , Jodie ([phone] ), called the and left a voicemail stating that she called Rik and spoke to a Keisha and was given the .
--- NOTE | 2019-07-13 15:07 | NUR ---
SS Group Note 07/13/19: Goal: Patient will attend group held today at 1:00 PM in the activities room and participate and/or actively listen to peers and be respectful. Intervention: SW facilitated group session with patients regarding Mindful Breathing exercise. SW educated the pt. on mindfulness purpose and benefits. Response: Patient was agreeable to participating in group session. The patient remained calm and cooperative throughout session. The pt. was pleasant, withdrawn unable to verbalize his thoughts with the group however, pt. was able to sit in and respectfully listen to his peers. Plan: Patient will be invited to attend next forensic social worker group session held.
--- NOTE | 2019-07-13 15:38 | NUR ---
Rik: JANAK faxed Rik all the documents that were requested to the fax number: [phone].
--- NOTE | 2019-07-13 15:45 | NUR ---
Medicare Letter of Denial: JANAK called the pts , Jodie ([phone]), and informed her that the paperwork was faxed to Rik. JANAK stated that there is a Medicare Letter of Denial that is being presented to her but she stated that she does not have an email address to send the letter. JANAK stated that the letter will be in the chart and she stated that she will visit on Tuesday and pick it up.
[2019-07-13 16:00] VITALS: BP 114/73
[2019-07-13] MEDS: TIMOLOL 0.25% SOL OPHTH 10 ML BOTTLE EACHEYE SCH (16:44)
[2019-07-13] MEDS: BRIMONIDINE TARTRATE OPHT SOLN 5 ML BOTTLE EACHEYE SCH (16:44)
[2019-07-13 20:09] VITALS: BP 114/70
[2019-07-13] MEDS: LATANOPROST EYE DROP 0.005% 2.5 ML BOTTLE EACHEYE SCH (21:59)
--- NOTE | 2019-07-13 22:00 | NUR ---
PT REFUSED PM MEDICATIONS. DEPAKOTE 250MG 1 TAB, SEROQUEL 25 MG 1 TAB XALANTAN OPTH DROP 0.005% 1 DROP EACH EYE AT 2200. PT OFFERED MEDICATION THREE TIMES AND STILL PT REFUSED STATING " GET OUT OF HERE, I DON'T WANT THEM". EDUCATED PT ON THE RISKS AND BENEFITS OF MEDICATION. WILL CONTINUE TO MONITOR.
[2019-07-14 08:00] VITALS: BP 117/77
[2019-07-14] MEDS: LORAZEPAM 0.5 MG TABLET PO PRN ×2 (08:26→11:30)
[2019-07-14] MEDS: BRIMONIDINE TARTRATE OPHT SOLN 5 ML BOTTLE EACHEYE SCH ×2 (08:26→16:09)
[2019-07-14] MEDS: DIVALPROEX SODIUM 250 MG TABLET.DR PO SCH (08:32)
[2019-07-14] MEDS: QUETIAPINE FUMARATE 25 MG TABLET PO SCH ×3 (08:32→21:33)
[2019-07-14] MEDS: TAMSULOSIN 0.4 MG CAP.SR.24H PO SCH (08:32)
--- NOTE | 2019-07-14 08:34 | NUR ---
GPS RN NOTE: PT REFUSED AM MEDICATIONS EXPLAIN RISK AND BENEFITS PT CONFUSED PT OFFERED MEDICATION X3 AND STILL REFUSED STATING WILL CONTINUE TO MONITOR.
[2019-07-14] MEDS: TIMOLOL 0.25% SOL OPHTH 10 ML BOTTLE EACHEYE SCH ×2 (09:00→16:09)
[2019-07-14] MEDS: DIVALPROEX SODIUM 125 MG CAP.SPRINK PO SCH ×2 (12:09→20:26)
[2019-07-14 16:00] VITALS: BP 112/70
--- NOTE | 2019-07-14 19:32 | NUR ---
GPS/RN NOTE: AWAKE, CONFUSED, KNOWS HIS NAME, NO APPARENT DISTRESS NOTED. WILL MONITOR Q 15 MINS. FOR SAFETY AND BEHAVIOR.
[2019-07-14 20:00] VITALS: BP 112/61
--- NOTE | 2019-07-14 20:32 | NUR ---
GPS/RN NOTE: PATIENT TOOK HIS NIGHT MEDS, MEDS CRUCHED AND MIXED WITH APPLE JUICE 125 ML.
[2019-07-14] MEDS: LATANOPROST EYE DROP 0.005% 2.5 ML BOTTLE EACHEYE SCH (21:33)
[2019-07-15] MEDS: TEMAZEPAM 7.5 MG CAPSULE PO PRN ×2 (00:20→21:24)
--- NOTE | 2019-07-15 00:20 | NUR ---
PATIENT STILL AWAKE AT T HIS TIME, RESTORIL 7.5 MG CAP PO GIVEN.
[2019-07-15 08:00] VITALS: BP 112/70
[2019-07-15] MEDS: QUETIAPINE FUMARATE 25 MG TABLET PO SCH ×4 (08:53→21:22)
[2019-07-15] MEDS: DIVALPROEX SODIUM 125 MG CAP.SPRINK PO SCH ×4 (08:53→21:23)
[2019-07-15] MEDS: TAMSULOSIN 0.4 MG CAP.SR.24H PO SCH ×2 (08:53→12:26)
[2019-07-15] MEDS: BRIMONIDINE TARTRATE OPHT SOLN 5 ML BOTTLE EACHEYE SCH ×2 (09:00→16:20)
[2019-07-15] MEDS: TIMOLOL 0.25% SOL OPHTH 10 ML BOTTLE EACHEYE SCH ×2 (09:00→16:20)
--- NOTE | 2019-07-15 09:14 | NUR ---
RN NOTES: PT SLEEPING HEAVILY. SLEPT 3.5 HOURS LAST NIGHT. UNWILLING AND UNABLE TO TAKE 0900 MEDS. WILL ADMINISTER WHEN AWAKE.
[2019-07-15] MEDS: LORAZEPAM 0.5 MG TABLET PO PRN (14:28)
--- NOTE | 2019-07-15 14:35 | NUR ---
RN NOTE: PT EXHIBITING INCREASED AGITATION AND IRRITABILITY. PT YELLING, "JOHN, JOHN, HELP ME". MEDICATED WITH ATIVAN 0.5 MG PO.
[2019-07-15 16:00] VITALS: BP 109/66
[2019-07-15 19:53] VITALS: BP 110/56
[2019-07-15] MEDS: LATANOPROST EYE DROP 0.005% 2.5 ML BOTTLE EACHEYE SCH (22:00)
--- NOTE | 2019-07-15 22:53 | NUR ---
PT REFUSED XALATAN OPTH DROP.
--- NOTE | 2019-07-16 06:38 | NUR ---
PT REFUSED PICTURES/SKIN ASSESSMENT
[2019-07-16 08:00] VITALS: BP 100/51
--- NOTE | 2019-07-16 08:44 | NUR ---
PUBLIC GUARDIANS OFFICE: JANAK contacted Deputy Yudith Winters from [facility] Public Guardian's Office [phone] and left a voicemail informing her that pts refused to pick pt up on Tuesday07/13/19 and that an appeal was made with [employer].
[2019-07-16] MEDS: DIVALPROEX SODIUM 125 MG CAP.SPRINK PO SCH ×3 (09:00→20:49)
[2019-07-16] MEDS: QUETIAPINE FUMARATE 25 MG TABLET PO SCH ×3 (09:00→22:38)
[2019-07-16] MEDS: BRIMONIDINE TARTRATE OPHT SOLN 5 ML BOTTLE EACHEYE SCH ×2 (09:00→17:32)
[2019-07-16] MEDS: TIMOLOL 0.25% SOL OPHTH 10 ML BOTTLE EACHEYE SCH ×2 (09:00→17:33)
--- NOTE | 2019-07-16 09:00 | NUR ---
RN NOTE: PT SLEEPING HEAVILY. AROUSES TO STIMULI. BREATHING EVEN AND UNLABORED. VSS, AFEBRILE. PT SLEPT 2 HOURS LAST NIGHT. AM PO MEDICATIONS HELD.
--- NOTE | 2019-07-16 09:09 | NUR ---
Rik: JANAK faxed [employer] coverage denial letter to fax number: [phone].
--- NOTE | 2019-07-16 09:35 | NUR ---
[employer]: JANAK received a call from Kristin, stating appeal was denied and liability started 07/15/19.
--- NOTE | 2019-07-16 09:47 | NUR ---
FAMILY CONTACT: JANAK contacted pts Jodie [phone] and informed her [employer] has denied her appeal and liability has started on 07/15/19. JANAK informed her that pt has been psychiatrically and medically cleared from the hospital and is ready for discharge on this present day. Jodie is refusing to pick pt up and stated that she wanted him to stay in the hospital as that is what her banking attorney is telling her to say, JANAK informed her that pt cannot stay in the hospital as he does not meet criteria. JANAK offered to refer pt to a board and care for placement and refused stating that she'd rather pay for pts hospital stay out of pocket than him going to a board and care. JANAK informed Jodie that she would have the paint grinder call her to discuss pts denial and continued hospital stay. agreed.
[2019-07-16] MEDS: TAMSULOSIN 0.4 MG CAP.SR.24H PO SCH (13:06)
--- NOTE | 2019-07-16 14:24 | NUR ---
BOARD AND CARE: SW met with Fannie, arts administrator at [facility] [place] [phone] who came to assess pt and informed SW that she will accept pt at her facility. Fannie stated that she will contact pts to discuss placement.
[2019-07-16] MEDS: LORAZEPAM 0.5 MG TABLET PO PRN (14:52)
--- NOTE | 2019-07-16 14:52 | NUR ---
RN NOTE: PT EXHIBITING INCREASED AGITATION. YELLING AND RESTLESS. MEDICATED WITH ATIVAN 0.5MG PO FOR ANXIETY.
--- NOTE | 2019-07-16 15:20 | NUR ---
GROUP NOTE: SW assessed pts ability to participate in group therapy discussing "discharge planning." Pt is unable to participate due to having Dementia and not being able to engage in a coherent conversation.
[2019-07-16 16:00] VITALS: BP 114/65
[2019-07-16 20:55] VITALS: BP 104/54
[2019-07-16] MEDS: LATANOPROST EYE DROP 0.005% 2.5 ML BOTTLE EACHEYE SCH (21:47)
[2019-07-16] MEDS: TEMAZEPAM 7.5 MG CAPSULE PO PRN (22:39)
[2019-07-17 08:00] VITALS: BP 92/55
--- NOTE | 2019-07-17 09:13 | NUR ---
BOARD AND CARE: JANAK contacted Fannie, warranty administrator at [facility] [phone] who stated pt will be discharged on this present day to [facility] [address] [facility] [address] .
--- NOTE | 2019-07-17 09:14 | NUR ---
FAMILY CONTACT: JANAK contacted pts Jodie [phone] to confirm pts discharge to [address] [address] . confirmed discharged and JANAK provided her with [facility] transport contact number to arrange transportation.
--- NOTE | 2019-07-17 09:16 | NUR ---
DISCHARGE NOTE: Pt will be discharged between 3:00pm-4:00pm via [facility] transport to [facility] [address] [facility] [address] . Pts Jodie [phone] has been notified and agrees with discharge. Pts mood is labile with congruent affect. Pt remains confused, disorganized, disoriented at baseline. Pt denied suicidal/homicidal ideation and denied visual/auditory hallucinations. Pt will follow up with Psychiatrist: Dr. Quispe [address] [address]. and Propulsion Systems Engineer: Dr. Ross Arcos Address: [address] [place] [address] [address] [address] . The multidisciplinary exit care form was done, printed, signed, and given to the patient.
[2019-07-17] MEDS: BRIMONIDINE TARTRATE OPHT SOLN 5 ML BOTTLE EACHEYE SCH (09:40)
[2019-07-17] MEDS: TIMOLOL 0.25% SOL OPHTH 10 ML BOTTLE EACHEYE SCH (09:40)
[2019-07-17] MEDS: TAMSULOSIN 0.4 MG CAP.SR.24H PO SCH (09:41)
[2019-07-17] MEDS: DIVALPROEX SODIUM 125 MG CAP.SPRINK PO SCH ×2 (09:42→13:38)
[2019-07-17] MEDS: QUETIAPINE FUMARATE 25 MG TABLET PO SCH (09:42)
--- NOTE | 2019-07-17 12:52 | NUR ---
REFUSED DISCHARGE PHOTOS ,PT DENIES SUICIDAL IDEATION,HOMICIDAL IDEATION AND COMMAND HALLUCINATIONS.
--- NOTE | 2019-07-17 16:15 | NUR ---
ALL PAPERS SIGNED,INCLUDING BELONGING SHEET.BOARD AND CARDIOVASCULAR PHYSICIAN ASSISTANT HERE.GIVEN ALL PAPERS.TAKEN TO FACILITY VIA VAN.
== END 2019-07-17 16:20 | disposition home or self-care (01) | DRG 885 ==
LOC: ER 08:40 → GPS 12:40
PROVIDERS: ADMIT Psychiatry & Neurology Psychiatry; ATTEND Nurse Practitioner Acute Care
DX: F29 Unspecified psychosis not due to a substance or known physiological condition (principal); F03.91 Unspecified dementia, unspecified severity, with behavioral disturbance; E78.5 Hyperlipidemia, unspecified; F20.9 Schizophrenia, unspecified; H40.9 Unspecified glaucoma; Z91.14 Patient's other noncompliance with medication regimen; D75.89 Other specified diseases of blood and blood-forming organs
CPT/HCPCS: 36415; 80048-TC; 80053-TC; 80061-TC; 80076-TC; 80164-TC; 80305; 81000-TC; 82962-TC; 85025-TC; 87081-TC; G0480; J3490